=== PATIENT | female | born 1960 | race Caucasian/White ===

== ENCOUNTER 2021-02-17 10:23 | Outpatient (REF) | payer MEDICAID, SELFPAY ==
--- NOTE | ~2021-02-17 | XR_ITS ---
EXAMINATION: XR FOOT, RIGHT XR ANKLE, RIGHT CLINICAL INFORMATION: Pain in right foot and ankle. COMPARISON: 05/01/2012 TECHNIQUE: Three-view right foot and two-view right ankle. FINDINGS: Views of the right ankle do not demonstrate any evidence of acute fracture or dislocation. Ankle mortise is intact. No destructive bony lesions are identified. No significant soft tissue swelling is seen. Views of the right foot do not demonstrate any evidence of acute fracture or dislocation. Calcaneal spurs present sites of insertion of Achilles and plantar tendons. There is some mild soft tissue swelling seen overlying the dorsum of the tarsal bones. XR/XR ankle RT min 3V IMPRESSION: No significant bony abnormality of the right foot or ankle. Calcaneal spurs.
--- NOTE | ~2021-02-17 | XR_ITS ---
EXAMINATION: XR FOOT, RIGHT XR ANKLE, RIGHT CLINICAL INFORMATION: Pain in right foot and ankle. COMPARISON: 05/01/2012 TECHNIQUE: Three-view right foot and two-view right ankle. FINDINGS: Views of the right ankle do not demonstrate any evidence of acute fracture or dislocation. Ankle mortise is intact. No destructive bony lesions are identified. No significant soft tissue swelling is seen. Views of the right foot do not demonstrate any evidence of acute fracture or dislocation. Calcaneal spurs present sites of insertion of Achilles and plantar tendons. There is some mild soft tissue swelling seen overlying the dorsum of the tarsal bones. XR/XR foot RT min 3V IMPRESSION: No significant bony abnormality of the right foot or ankle. Calcaneal spurs.
== END 2021-02-17 10:24 | disposition home or self-care (01) ==
LOC: HO.XRAY 10:23
PROVIDERS: PCP Family Medicine; Visit Provider Family Medicine
DX: M25.571 Pain in right ankle and joints of right foot (principal); M79.674 Pain in right toe(s)
CPT/HCPCS: 73610; 73630

== ENCOUNTER → 2021-10-30 13:11 | Outpatient (REF) | payer MEDICAID, SELFPAY ==
--- NOTE | 2021-10-30 13:16 | ECG_ITS ---
Hook-up date: 2021-10-30 13:45:00 Duration: 24:11:00 Test Indications: Vent Premature Depolarization Medications: 62190 QRS complexes 10232 Ventricular ectopics which represent 14 % of total QRS comp. 86 Supraventricular ectopics which represent <1 % of total QRS comp. * Paced QRS complexs which represent % of total QRS comp. VENTRICULAR ECTOPY 07121 Isolated 1881 Bigeminal Cycles 11 Couplets 1 Runs 4 Beats in Runs 4 Beats LONGEST at 136 BPM at 18:56:51 2021-10-30 4 Beats FASTEST at 136 BPM at 18:56:51 2021-10-30 SUPRAVENTRICULAR ECTOPY 67 Isolated 4 Couplets 3 Runs 11 Beats in Runs 4 Beats LONGEST at 105 BPM at 15:25:02 2021-10-30 4 Beats FASTEST at 130 BPM at 03:33:30 2021-10-31 HEART RATES 53 MIN at 08:01:53 2021-10-31 72 AVG 114 MAX at 09:06:14 2021-10-31 LONGEST RR 1.0880 secs at 08:01:53 2021-10-31 S-T LEVELS Channel 1 - 128 mm at 13:45:00 2021-10-30 - 128 mm at 13:45:00 2021-10-30 Channel 2 - 128 mm at 13:45:00 2021-10-30 - 128 mm at 13:45:00 2021-10-30 Channel 3 - 128 mm at 03:30:41 -- - 128 mm at 03:30:41 Basic rhythm Normal sinus rhythm No long pause or profound bradycardia Frequent Premature ventricular complexes noted, 14% of total beats No diary submitted Referred By: Patricia Asher Overread By: INGRID REYES MD
== END ==
LOC: HO.CARD 13:11
PROVIDERS: PCP Family Medicine; Visit Provider Family Medicine
DX: I49.3 Ventricular premature depolarization (principal)
CPT/HCPCS: 93225; 93226

== ENCOUNTER 2021-11-17 11:50 | Outpatient (REF) | payer MEDICAID, SELFPAY ==
--- NOTE | ~2021-11-17 | MM_ITS ---
EXAMINATION: MM SCREENING DIGITAL BREAST TOMOSYNTHESIS, BILATERAL CLINICAL INFORMATION: Screening. Asymptomatic. The lifetime risk of breast cancer based on the Tyrer-Cuzick Model is 3%. COMPARISON: Mammography: 03/18/2018, 03/11/2017, 01/30/2016, 01/20/2015 TECHNIQUE: Digital breast tomosynthesis is performed in both the craniocaudal and mediolateral oblique views along with computer-aided detection (CAD). Synthesized 2D images are generated from the tomosynthesis. FINDINGS: The breasts are almost entirely fatty (ACR BI-RADS breast composition Category a). Background stromal and fibroglandular densities are stable. There are scattered benign round, rim, predominantly dermal calcifications. There is no interval mass or architectural abnormality or abnormal calcifications. Axillary node similar to prior exams with benign abundant fatty hilus. Skin contours are smooth. No significant changes. MM/MM tomosynthesis screening BI IMPRESSION: No mammographic evidence of malignancy. ASSESSMENT: BI-RADS 2: Benign RECOMMENDATION: Routine annual mammography screening. This patient's information was entered into a reminder system with a target due date for their next mammogram.
== END 2021-11-17 11:51 | disposition home or self-care (01) ==
LOC: HO.MAMMO 11:50
PROVIDERS: PCP Family Medicine; Visit Provider Family Medicine
DX: Z12.31 Encounter for screening mammogram for malignant neoplasm of breast (principal)
CPT/HCPCS: 77063; 77067

== ENCOUNTER 2022-03-09 07:16 | Outpatient (REF) | payer MEDICAID, SELFPAY ==
--- NOTE | ~2022-03-09 | XR_ITS ---
EXAMINATION: XR ELBOW, LEFT CLINICAL INFORMATION: Pain. COMPARISON: 03/11/2017. TECHNIQUE: AP, lateral, and oblique views of the left elbow. FINDINGS: There is no evidence of acute fracture or dislocation of the left elbow. No left elbow effusion is identified. Calcific density is seen about the lateral epicondyle, consistent with calcific epicondylitis. This has progressed since previous study of 03/11/2017. XR/XR elbow LT min 3V IMPRESSION: Lateral calcific epicondylitis. No acute fracture, dislocation, or effusion.
== END 2022-03-09 07:17 | disposition home or self-care (01) ==
LOC: HO.HOSX 07:16
PROVIDERS: Visit Provider Physician Assistant
DX: G56.22 Lesion of ulnar nerve, left upper limb (principal); G56.02 Carpal tunnel syndrome, left upper limb; M25.522 Pain in left elbow
CPT/HCPCS: 73080; 99212

== ENCOUNTER 2022-06-28 12:02 | Outpatient (REF) | payer MEDICAID, SELFPAY ==
--- NOTE | 2022-06-28 09:15 | EMG_ITS ---
Left median and ulnar motor and sensory studies were performed. Left radial sensory study was performed and paraspinal muscles were tested with a needle. IMPRESSION: Mild to moderate left median neuropathy across carpal tunnel. MD JET Bush/BARBARA / [phone]
== END 2022-06-28 12:03 | disposition home or self-care (01) ==
LOC: HO.NEURO 12:02
PROVIDERS: PCP Family Medicine; Visit Provider Physician Assistant
DX: G56.02 Carpal tunnel syndrome, left upper limb (principal); G56.22 Lesion of ulnar nerve, left upper limb
CPT/HCPCS: 95886; 95909

== ENCOUNTER → 2022-07-25 08:16 | Outpatient (BNVA) | payer MEDICAID, SELFPAY | PROVIDERS: PCP Family Medicine; Visit Provider Orthopaedic Surgery | DX: G56.02 Carpal tunnel syndrome, left upper limb (principal); M77.12 Lateral epicondylitis, left elbow | CPT/HCPCS: 20551; 99202; J1100 ==

== ENCOUNTER 2022-11-19 12:13 | Outpatient (REF) | payer MEDICAID, SELFPAY ==
--- NOTE | ~2022-11-19 | MM_ITS ---
EXAMINATION: MM SCREENING DIGITAL BREAST TOMOSYNTHESIS, BILATERAL CLINICAL INFORMATION: Screening. Asymptomatic. The lifetime risk of breast cancer based on the Tyrer-Cuzick Model is 6%. COMPARISON: Mammography: 11/17/2021, 03/18/2018, 03/11/2017 TECHNIQUE: Digital breast tomosynthesis is performed in both the craniocaudal and mediolateral oblique views along with computer-aided detection (CAD). Synthesized 2D images are generated from the tomosynthesis. FINDINGS: The breasts are almost entirely fatty (ACR BI-RADS breast composition Category a). There are no significant masses, abnormal calcifications, or other abnormalities. Background stromal markings appearing normal. No developing density or architectural abnormality. There are scattered predominantly dermal round calcifications again seen. The axilla are unremarkable. There are no significant changes. MM/MM tomosynthesis screening BI IMPRESSION: No mammographic evidence of malignancy. ASSESSMENT: BI-RADS 2: Benign RECOMMENDATION: Routine annual mammography screening. This patient's information was entered into a reminder system with a target due date for their next mammogram.
== END 2022-11-19 12:14 | disposition home or self-care (01) ==
LOC: HO.MAMMO 12:13
PROVIDERS: PCP Family Medicine; Visit Provider Family Medicine
DX: Z12.31 Encounter for screening mammogram for malignant neoplasm of breast (principal)
CPT/HCPCS: 77063; 77067

== ENCOUNTER 2023-08-21 08:02 | Outpatient (REF) | payer MEDICAID, SELFPAY ==
[2023-08-21 12:09] LABS: Alanine Aminotransferase 17 U/L (0-31); Alkaline Phosphatase 65 U/L (39-117); Anion Gap 11 (12-20); Aspartate Amino Transferase 18 U/L (5-31); Bilirubin Total 0.5 mg/dL (0.0-1.0); Blood Urea Nitrogen 14 mg/dL (9-16); Calcium 9.5 mg/dL (8.4-10.2); Carbon Dioxide 28 mmol/L (22-29); Chloride 107 mmol/L (96-108); Cholesterol 111 mg/dL (<200); Estimated Glomerular Filt Rate > 60; Glucose Random 123 mg/dL (60-115); HDL Cholesterol 47 mg/dL (>40); LDL Cholesterol Calculated 50 mg/dL (<100); Potassium 4.4 mmol/L (3.3-5.1); Sodium 142 mmol/L (135-145); Total Protein 7.2 g/dL (6.5-8.0); Triglycerides 73 mg/dL (<150)
[2023-08-21 12:27] LABS: Creatinine Urine 134.42 mg/dL; Microalbum/Creatinine Ratio Ur 15.6 ug/mg cr (<30)
[2023-08-21 14:20] LABS: Vitamin B12 448 pg/mL (200-900)
== END 2023-08-21 08:03 | disposition home or self-care (01) ==
LOC: HO.HHCL 08:02
PROVIDERS: Visit Provider Family Medicine
DX: E11.9 Type 2 diabetes mellitus without complications (principal)
CPT/HCPCS: 36415; 80053; 80061; 82043; 82570; 82607

== ENCOUNTER 2023-11-21 11:37 | Outpatient (REF) | payer MEDICAID, SELFPAY | END 2023-11-21 11:38 | disposition home or self-care (01) | LOC: HO.MAMMO 11:37 | PROVIDERS: PCP Family Medicine; Visit Provider Family Medicine | DX: Z12.31 Encounter for screening mammogram for malignant neoplasm of breast (principal) | CPT/HCPCS: 77063; 77067 ==

== ENCOUNTER → 2023-11-21 12:45 | Outpatient (BNV) | payer MEDICAID, SELFPAY | PROVIDERS: PCP Family Medicine; Visit Provider Radiology Diagnostic Radiology | DX: Z12.31 Encounter for screening mammogram for malignant neoplasm of breast (principal) | CPT/HCPCS: 77063; 77067 ==

== ENCOUNTER 2024-07-01 | Outpatient (REF) | payer MEDICAID, SELFPAY ==
[2024-07-02 10:40] LABS: HPV 16,18/45 See PAP report
== END 2024-07-01 00:01 | disposition home or self-care (01) ==
LOC: HO.LNP
PROVIDERS: Visit Provider Family Medicine
DX: Z01.419 Encounter for gynecological examination (general) (routine) without abnormal findings (principal); Z11.51 Encounter for screening for human papillomavirus (HPV)
CPT/HCPCS: 87624; 88175

== ENCOUNTER 2024-09-30 09:28 | Outpatient (REF) | payer MEDICAID, SELFPAY ==
--- NOTE | ~2024-09-30 | XR_ITS ---
EXAMINATION: XR TOES, RIGHT CLINICAL INFORMATION: right 2nd toe pain COMPARISON: None available. TECHNIQUE: 3 views of the right toes were obtained. FINDINGS: No osteolysis. No subcutaneous emphysema. No acute cortical disruption or malalignment. XR/XR toe RT min 2V IMPRESSION: No osteomyelitis based upon x-ray. Electronically signed by: Bam Wood MD 09/30/2024 10:34 AM RIGO
--- OUTSIDE RECORDS SUMMARY | 2024-09-30 09:56 | XMS_ITS | Clinical Summary ---
Author Organization [employer] Address [address] [place] [address] Care Team Providers Care Road Manager Name Role Phone Patricia Asher MD Primary Care Provider [phone] Zachary Garcia PharmD Unavailable [phone] Allergies No known active allergies Medications * This document contains information received from the source organization and may not represent a complete record from that organization. Blood Glucose Monitoring Suppl (FreeStyle glucose monitoring) kit Use to test blood sugar twice daily Active metoprolol succinate XL (Toprol-XL) 25 MG 24 hr tablet Take 1 tablet by mouth daily Active Diclofenac Sodium 1 % gel Apply to affected areas once or twice daily as needed for pain 150 g 2 3 Active lidocaine (Lidoderm) 5 % patch Apply to affected areas (bilateral knees) once daily. Remove after 12 hours. 60 patch 3 3 Active gabapentin (Neurontin) 300 MG capsule TAKE 1 CAPSULE BY MOUTH TWICE DAILY 3 Active Ventolin HFA 108 (90 Base) MCG/ACT inhalerIndications: Moderate persistent asthma without complication INHALE 2 PUFFS BY MOUTH EVERY 4 TO 6 HOURS NEEDED 18 g 3 Active TRUEplus Lancets 33G miscIndications:Typ e 2 diabetes mellitus without complication, without long-term current use of insulin ([facility]) Use to test blood sugar twice daily as directed 200 each 2 3 Active aspirin (Aspirin Adult Low Strength) 81 MG EC tabletIndications:T ype 2 diabetes mellitus without complication, without long-term current use of insulin ([facility]) TAKE 1 TABLET BY MOUTH ONCE DAILY 90 tablet 3 4 Active fluticasone furoate (Arnuity Ellipta) 100 MCG/ACT inhaler Inhale 1 PUFF EVERY DAY RINSE MOUTH AFTER USING. 30 each 11 4 Active glucose blood (FREESTYLE LITE) test stripIndications:Ty pe 2 diabetes mellitus without complication, without long-term current use of insulin ([facility]) Use to test blood sugar twice daily as directed 150 each 3 4 Active meloxicam (Mobic) 7.5 MG tabletIndications:P rimary osteoarthritis of both knees TAKE 1 TABLET BY MOUTH ONE OR TWO TIMES DAILY NEEDED 60 tablet 5 4 Active montelukast (Singulair) 10 MG tablet TAKE 1 TABLET BY MOUTH EVERY EVENING 90 tablet 3 4 Active cholecalciferol (Vitamin D-3) 25 MCG tablet TAKE 1 TABLET BY MOUTH EVERY DAY 90 tablet 3 4 Active Dulaglutide (Trulicity) 3 MG/0.5ML solution auto-injector Inject 0.5 mL (3 mg) under the skin 1 (one) time per week. 2 mL 11 4 Active enalapril (Vasotec) 20 MG tabletIndications:E ssential hypertension TAKE 1 TABLET BY MOUTH TWICE DAILY 180 tablet 3 4 Active atorvastatin (Lipitor) 40 MG tablet TAKE 1 TABLET BY MOUTH AT BEDTIME 90 tablet 3 4 Active metFORMIN (Glucophage) 1000 MG tablet TAKE 1 TABLET BY MOUTH TWICE DAILY IN THE MORNING AND IN THE EVENING WITH MEALS 180 tablet 3 4 Active Active Problems Problem Noted Date Diagnosed Date Depression 11/17/2023 Assessment & Plan (12/23/2023 9:31 AM EDT): PROGRESS NOTE: ID: Miryam is a 63 y.o. straight-identified cis-female (pronouns she/her/hers) with previous documented hx of Depression MH services including OP Psychotherapy who presents for Depression. During IBH Consult Miryam presenting with concern about ambulation, reported feeling stuck, PHQ-9 was conducted patient scored 0 and denies trauma, SI/HI/AVH and self harm. MONICA-7 was also conducted, patients scored 2 fearfulness and trouble relaxing, not meeting criteria for dx. Miryam reported she lives with her daughter and and they talk, verbalized at this time she is not interested in MH services at this time. I encouraged Miryam to inform PCP is she changes her mind, she agreed. ; for a period of 0-6 mo, for all symptoms in the context of unable to identify significant stressors. PLAN: Further services offered, but declined by patient. Assessment & Plan (11/17/2023 1:23 PM EDT): - PHQ9 score 11 - will refer to [facility] behavioral health service Premature ventricular beats 09/09/2022 Assessment & Plan (08/15/2023 10:00 AM EST): - Holter monitor on 10/30/21 showed 14% of premature ventricular complex - Continue metoprolol succinate 12.5 mg daily due to HTN Assessment & Plan (03/03/2023 5:06 PM EDT): - Holter monitor on 10/30/21 showed 14% of premature ventricular complex - Continue metoprolol succinate 12.5 mg daily due to HTN Assessment & Plan (12/10/2022 11:47 AM EDT): - Holter monitor on 10/30/21 showed 14% of premature ventricular complex - Continue metoprolol succinate 12.5 mg daily due to HTN Assessment & Plan (09/09/2022 11:31 AM EST): - Holter monitor on 10/30/21 showed 14% of premature ventricular complex - Will consult with cardilogist - Start metoprolol succinate 12.5 mg daily due to HTN History of stroke 09/06/2022 Assessment & Plan (08/15/2023 10:06 AM EST): - Work on secondary prevention - lifestyle modifications - high-intensity statin and ASA - control BP Assessment & Plan (03/03/2023 5:09 PM EDT): - Work on secondary prevention - lifestyle modifications - high-intensity statin and ASA - control BP Assessment & Plan (12/10/2022 11:50 AM EDT): - Work on secondary prevention - lifestyle modifications - high-intensity statin and ASA - control BP Assessment & Plan (09/09/2022 11:23 AM EST): - Work on secondary prevention - lifestyle modifications - high-intensity statin and ASA - control BP Bilateral carpal tunnel syndrome 09/06/2022 Assessment & Plan (08/15/2023 9:57 AM EST): - orthopedist: [facility] [place] - continue conservative management and schedule carpal tunnel release surgery when she is ready - activity modification - use wrist brace for night time Assessment & Plan (03/03/2023 5:06 PM EDT): - orthopedist: [facility] [place] - continue conservative management and schedule carpal tunnel release surgery when she is ready - activity modification - use wrist brace for night time Assessment & Plan (12/10/2022 11:45 AM EDT): - orthopedist: [facility] [place] - continue conservative management and schedule carpal tunnel release surgery when she is ready - activity modification - use wrist brace for night time Assessment & Plan (09/09/2022 11:05 AM EST): - orthopedist: [facility] [place] - continue conservative management and schedule carpal tunnel release surgery when she is ready - activity modification - will prescribe wrist brace for night time Asthma 09/04/2022 Assessment & Plan (08/15/2023 9:58 AM EST): - Change Flovent to Asmanex - Continue montelukast as maintenance - Continue albuterol HFA prn Assessment & Plan (12/10/2022 11:46 AM EDT): - Continue Flovent 110 mcg bid and montelukast as maintenance - Continue albuterol HFA prn Assessment & Plan (09/09/2022 11:10 AM EST): - Continue Flovent 110 mcg bid and montelukast as maintenance - Continue albuterol HFA prn 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 No inflammatory arthritis or autoimmune disorder. Vascular insufficiency 09/04/2022 Assessment & Plan (07/01/2024 9:33 AM EST): - Evaluated by Dr. Forrester on 06/15/19. Following with [facility] provider, last seen in Apr 2022 - CEAP Class III. - Currently managed by conservative management. - Continue compression stocking, low sodium intake, and leg elevation. - 08/20/19 Venous study right CFV, GSV, SFJ valve, SSV, and popliteal insufficiency; left CFV, SGV, SFJ valve, popliteal, and SSV insufficiency; L > R Assessment & Plan (08/15/2023 10:00 AM EST): - Evaluated by Dr. Forrester on 06/15/19. Following with [facility] provider, last seen in Apr 2022 - CEAP Class III. - Currently managed by conservative management. - Continue compression stocking, low sodium intake, and leg elevation. - 08/20/19 Venous study right CFV, GSV, SFJ valve, SSV, and popliteal insufficiency; left CFV, SGV, SFJ valve, popliteal, and SSV insufficiency; L > R Assessment & Plan (12/10/2022 11:46 AM EDT): - Evaluated by Dr. Forrester on 06/15/19. Following with [facility] provider, last seen in Apr 2022 - CEAP Class III. - Currently managed by conservative management. - Continue compression stocking, low sodium intake, and leg elevation. - 08/20/19 Venous study right CFV, GSV, SFJ valve, SSV, and popliteal insufficiency; left CFV, SGV, SFJ valve, popliteal, and SSV insufficiency; L > R Assessment & Plan (09/09/2022 11:17 AM EST): - Evaluated by Dr. Forrester on 06/15/19. [facility] last seen in Apr 2022 - CEAP Class III. - Currently managed by conservative management. - Continue compression stocking, low sodium intake, and leg elevation. - 08/20/19 Venous study right CFV, GSV, SFJ valve, SSV, and popliteal insufficiency; left CFV, SGV, SFJ valve, popliteal, and SSV insufficiency; L > R Dry eyes 02/19/2018 Presbyopia 02/19/2018 Osteoarthritis of knee 01/03/2017 Assessment & Plan (08/15/2023 10:02 AM EST): Seen by ortho on 01/06/2018 and Received steroid injection in R knee. Referred to supervisor paint and received injection. Seen and evalauted by machining and assembly supervisor. No inflammatory arthritis. Recommended to continue judicious use of gabapentin. Discussed about working on lifestyle modifications. Treatment Hx: meloxicam 7.5 mg once or twice daily, pt is no longer taking it Continue APAP prn Add Lidoderm patch and diclofenac gel Assessment & Plan (03/03/2023 5:08 PM EDT): Seen by ortho on 01/06/2018 and Received steroid injection in R knee. Referred to supervisor paint and received injection. Seen and evalauted by machining and assembly supervisor. No inflammatory arthritis. Recommended to continue judicious use of gabapentin. Discussed about working on lifestyle modifications. Treatment Hx: meloxicam 7.5 mg once or twice daily, pt is no longer taking it Continue APAP prn Add Lidoderm patch and diclofenac gel Assessment & Plan (09/09/2022 11:20 AM EST): Seen by ortho on 01/06/2018 and Received steroid injection in R knee. Referred to supervisor paint and received injection. Seen and evalauted by machining and assembly supervisor. No inflammatory arthritis. Recommended to continue judicious use of gabapentin. Discussed about working on lifestyle modifications. Rx meloxicam 7.5 mg once or twice daily for moderate to severe pain Varicose veins of lower extremity 08/13/2016 Assessment & Plan (07/01/2024 9:33 AM EST): - Evaluated by Dr. Forrester on 06/15/19. Following with [facility] provider, last seen in Apr 2022 - CEAP Class III. - Currently managed by conservative management. - Continue compression stocking, low sodium intake, and leg elevation. - 08/20/19 Venous study right CFV, GSV, SFJ valve, SSV, and popliteal insufficiency; left CFV, SGV, SFJ valve, popliteal, and SSV insufficiency; L > R Assessment & Plan (08/15/2023 10:00 AM EST): - Evaluated by Dr. Forrester on 06/15/19. [facility], last seen in Apr 2022 - CEAP Class III. - Currently managed by conservative management. - Continue compression stocking, low sodium intake, and leg elevation. - 08/20/19 Venous study right CFV, GSV, SFJ valve, SSV, and popliteal insufficiency; left CFV, SGV, SFJ valve, popliteal, and SSV insufficiency; L > R Assessment & Plan (03/03/2023 5:06 PM EDT): - Evaluated by Dr. Forrester on 06/15/19. Following with [facility] provider, last seen in Apr 2022 - CEAP Class III. - Currently managed by conservative management. - Continue compression stocking, low sodium intake, and leg elevation. - 08/20/19 Venous study right CFV, GSV, SFJ valve, SSV, and popliteal insufficiency; left CFV, SGV, SFJ valve, popliteal, and SSV insufficiency; L > R Assessment & Plan (12/10/2022 11:46 AM EDT): - Evaluated by Dr. Forrester on 06/15/19. [facility], last seen in Apr 2022 - CEAP Class III. - Currently managed by conservative management. - Continue compression stocking, low sodium intake, and leg elevation. - 08/20/19 Venous study right CFV, GSV, SFJ valve, SSV, and popliteal insufficiency; left CFV, SGV, SFJ valve, popliteal, and SSV insufficiency; L > R Assessment & Plan (09/09/2022 11:17 AM EST): - Evaluated by Dr. Forrester on 06/15/19. [facility], last seen in Apr 2022 - CEAP Class III. - Currently managed by conservative management. - Continue compression stocking, low sodium intake, and leg elevation. - 08/20/19 Venous study right CFV, GSV, SFJ valve, SSV, and popliteal insufficiency; left CFV, SGV, SFJ valve, popliteal, and SSV insufficiency; L > R Type 2 diabetes mellitus 01/10/2016 Assessment & Plan (07/01/2024 9:33 AM EST): - A1C 7.5% on 07/01/24 - Continue working on lifestyle modifications - Continue Prandin 1 mg with breakfast, 2 mg with lunch, and 1 mg with dinner - Continue Metfomrin 1000mg BID. - Increase dulaglutide (Trulicity) to 3.0 mg weekly - Treatment Hx: Jardiance 10 mg daily - discontinued due to symptom - Last eye exam: Jun 2023, no diabetic retinopathy - Last foot exam: 07/01/24 - Last microalbumin test: Jul 2023. No microalbuminuria. - Last lipid profile: Jul 2023 - Last dental exam: - Follow up in 3 mo Assessment & Plan (11/17/2023 1:27 PM EDT): - A1C 7.5%, slight improvement from long plateau period of 7.7% - 7.8% - Continue working on lifestyle modifications - Continue Prandin 1 mg with breakfast, 2 mg with lunch, and 1 mg with dinner - Continue Metfomrin 500mg 2 tablets BID. - Increase dulaglutide (Trulicity) to 1.5 mg weekly; due to its shortage, we can continue with 0.75 mg weekly. Once she starts 1.5 mg weekly, discontinue Prandin. - Treatment Hx: Jardiance 10 mg daily - discontinued due to symptom - Last eye exam: Jun 2023, no diabetic retinopathy - Last foot exam: October 2023. - Last microalbumin test: Jul 2023. No microalbuminuria. - Last lipid profile: Jul 2023 - Last dental exam: - Follow up in 3 mo Assessment & Plan (08/15/2023 10:06 AM EST): - A1C 7.7% on 08/13/23, plateau - Discussed about the importance of lifestyle modifications to achieve her goal A1C. - Continue Prandin 1 mg with breakfast, 2 mg with lunch, and 1 mg with dinner - Continue Metfomrin 500mg 2 tablets BID. - Treatment Hx: Jardiance 10 mg daily - discontinued due to symptom - Last eye exam: Jun 2023, no diabetic retinopathy - Last foot exam: 08/2022 - Last microalbumin test: Ordered, no history of microalbuminuria - Last FLP:Ordered - Last dental exam: - Follow up in 3 mo Assessment & Plan (03/03/2023 5:10 PM EDT): - A1C 7.7% on 02/28/23, 7.8% 09/06/22 - Discussed about the importance of lifestyle modifications to achieve her goal A1C. - Continue Prandin 1 mg with breakfast, 2 mg with lunch, and 1 mg with dinner - Continue Metfomrin 500mg 2 tablets BID. - Treatment Hx: Jardiance 10 mg daily - discontinued due to symptom - Last eye exam: February 2019, no diabetic retinopathy - Last foot exam: 08/2022 - Last microalbumin test: 02/15/21 UACR 10 - Last FLP: 02/15/21 TC 131; HDL 51; LDL 60; TG 111 - Last dental exam: - Follow up in 3 mo Assessment & Plan (12/10/2022 11:49 AM EDT): - A1C 7.8% 09/06/22, trending up - Discussed about the importance of lifestyle modifications to achieve her goal A1C. - Continue Prandin 1 mg with breakfast, 2 mg with lunch, and 1 mg with dinner - Continue Metfomrin 500mg 2 tablets BID. - Treatment Hx: Jardiance 10 mg daily - discontinued due to symptom - Last eye exam: February 2019, no diabetic retinopathy - Last foot exam: 08/2022 - Last microalbumin test: 02/15/21 UACR 10 - Last FLP: 02/15/21 TC 131; HDL 51; LDL 60; TG 111 - Last dental exam: Assessment & Plan (09/09/2022 11:26 AM EST): - A1C 7.8% 09/06/22, trending up - Discussed about the importance of lifestyle modifications to achieve her goal A1C. - Continue Prandin 1 BID - Continue Metfomrin 500mg 2 tablets BID. - Treatment Hx: Jardiance 10 mg daily - discontinued due to symptom - Last eye exam: February 2019, no diabetic retinopathy - Last foot exam: 08/2022 - Last microalbumin test: 02/15/21 UACR 10 - Last FLP: 02/15/21 TC 131; HDL 51; LDL 60; TG 111 - Last dental exam: Essential hypertension 07/19/2015 Assessment & Plan (07/06/2024 9:45 AM EST): - Goal BP < 140/90 er JNC-8 and < 130/80 per ACC/AHA guideline - Initial BP not at goal today; second BP reading in office was better. - Co-managed with butter wrapper and pharmacist - Treatment Hx: HCTZ was discontinued because she was diagnosed with gout / mild hyperuricemia and hypokalemia - Continue working on lifestyle modifications - Continue Enalapril 20 mg bid - Continue metoprolol succinate 12.5 mg daily for frequent PVC. - Follow up in 3 mo, sooner if any problem arises Assessment & Plan (11/17/2023 1:18 PM EDT): - Goal BP < 140/90 er JNC-8 and < 130/80 per ACC/AHA guideline - BP at goal today - Co-managed with butter wrapper and pharmacist - Treatment Hx: HCTZ was discontinued because she was diagnosed with gout / mild hyperuricemia and hypokalemia - Continue working on lifestyle modifications - Continue Enalapril 20 mg bid - Continue metoprolol succinate 12.5 mg daily for frequent PVC. - Follow up in 3 mo, sooner if any problem arises Assessment & Plan (08/15/2023 10:01 AM EST): - Goal BP < 140/90 er JNC-8 and < 130/80 per ACC/AHA guideline - BP not at goal today - Treatment Hx: HCTZ was discontinued because she was diagnosed with gout / mild hyperuricemia and hypokalemia - Continue working on lifestyle modifications - Continue Enalapril 20 mg bid - Continue metoprolol succinate 12.5 mg daily for frequent PVC. - Referred to [facility] - Follow up in 3 mo, sooner if any problem arises Assessment & Plan (03/03/2023 5:07 PM EDT): - Goal BP < p140/90 er JNC-8 and < 130/80 per ACC/AHA guideline - BP not at goal today - Treatment Hx: HCTZ was discontinued because she was diagnosed with gout / mild hyperuricemia and hypokalemia - Continue working on lifestyle modifications - Continue Enalapril 20 mg bid - Continue metoprolol succinate 12.5 mg daily for frequent PVC. - Referred to [facility] - Follow up in 3 mo, sooner if any problem arises Assessment & Plan (12/10/2022 11:48 AM EDT): - Goal BP < p140/90 er JNC-8 and < 130/80 per ACC/AHA guideline - BP not at goal today - Treatment Hx: HCTZ was discontinued because she was diagnosed with gout / mild hyperuricemia and hypokalemia - Continue working on lifestyle modifications - Continue Enalapril 20 mg bid - Continue metoprolol succinate 12.5 mg daily for frequent PVC. - Referred to [facility] - Follow up in 3 mo, sooner if any problem arises Assessment & Plan (09/09/2022 11:15 AM EST): - Goal BP < p140/90 er JNC-8 and < 130/80 per ACC/AHA guideline - BP not at goal today - Treatment Hx: HCTZ was discontinued because she was diagnosed with gout / mild hyperuricemia and hypokalemia - Continue working on lifestyle modifications - Continue current medications: Enalapril 20 mg bid - Add metoprolol succinate 12.5 mg daily for frequent PVC. - Refer to [facility] - Follow up in 3 mo, sooner if any problem arises Seasonal allergic rhinitis 07/19/2015 Assessment & Plan (09/09/2022 11:24 AM EST): - continue montelukast Hemiparesis affecting right side as late effect of stroke 2014 Assessment & Plan (08/15/2023 9:57 AM EST): - pt is using a cane - fall precaution Assessment & Plan (03/03/2023 5:06 PM EDT): - pt is using a cane - fall precaution Assessment & Plan (12/10/2022 11:45 AM EDT): - pt is using a cane - fall precaution Assessment & Plan (09/09/2022 11:05 AM EST): - pt is using a cane - fall precaution Dyslipidemia 06/03/2013 Assessment & Plan (11/17/2023 1:23 PM EDT): - Current medication: atorvastatin 40 mg qhs - Most recent lab: Jul 2023 - High-intensity statin therapy is indicated; consider increasing after next lab - Continue working on lifestyle modifications Assessment & Plan (08/15/2023 10:07 AM EST): - Current medication: atorvastatin 40 mg qhs - Most recent lab: 02/15/21 TC 131; HDL 51; LDL 60; TG 111 - High-intensity statin therapy is indicated; consider increasing after next lab - Continue working on lifestyle modifications - Check lab Assessment & Plan (09/09/2022 11:23 AM EST): - Current medication: atorvastatin 40 mg qhs - Most recent lab: 02/15/21 TC 131; HDL 51; LDL 60; TG 111 - High-intensity statin therapy is indicated; consider increasing after next lab - Continue working on lifestyle modifications - Check lab Gastroesophageal reflux disease 06/03/2013 Obesity 06/03/2013 Assessment & Plan (08/15/2023 10:06 AM EST): - continue working on lifestyle modificatioins Assessment & Plan (09/09/2022 11:24 AM EST): - continue working on lifestyle modificatioins Resolved Problems Problem Noted Date Diagnosed Date Resolved Date Inflammatory disorder of upp er respiratory tract 10/28/2018 09/06/2022 Encounters Date Type Department Care Team Description 08/23/2024 Refill [facility] [address] [place] [address] Patricia Asher MD Essential hypertension 08/05/2024 Travel 07/01/2024 9:00 AM EST Procedure Visit [facility] [address] [place] [address] Patricia Asher MD Encounter for well woman exam with routine gynecological exam (Primary Dx); Type 2 diabetes mellitus without complication, without long-term current use of insulin ([facility]); Essential hypertension; Varicose veins of both lower extremities, unspecified whether complicated; Vascular insufficiency; Encounter for immunization; Pain in right toe(s); Urinary incontinence, unspecified type; Screening for colon cancer 07/01/2024 Travel from Last 3 Months Immunizations Name Administration Dates Next Due Hep B, adult 01/10/2016,10/18/2015,04/14/2015 Influenza Injectable Quadriv alant Preservative Free IIV4 MDCK 06/24/2023,06/13/2020 Influenza injectable quadriv alent IIV4 with preservative 05/14/2019,06/12/2018,08/21/2017,05/23 Influenza injectable quadriv alent preservative free 07/23/2022,05/30/2021 Influenza, IIV3, injectable 05/27/2014, 1 Influenza, Split (incl. ray fied surface antigen) 06/03/2013,06/17/2012 Influenza, seasonal, injecta ble, preservative free 07/01/2024 Moderna Covid-19 Vaccine 12+ 01/16/2024( Deferred: Patient decision - Vaccine Fatigue) Moderna Covid-19 Vaccine 6+ Bivalent 09/06/2022 Pfizer Covid-19 Vaccine 12+ 09/12/2021, 1,02/15/2021 Pneumococcal Conjugate PCV 20 02/28/2023 Pneumococcal Polysaccharide PPSV23 10/07/2010 Pneumococcal, Unspecified 10/07/2010 RSV Bivalent 01/16/2024(Deferred: Patient decision - Vaccine Fatigue) TD (adult), 2 Lf tetanus tox oid, preservative free, adsorbed 09/06/2022 Tdap 10/12/2010 Zoster, Recombinant 07/07/2019,04/29/2019 Family History Medical History Relation Name Comments Cardiomyopathy Father Coronary artery disease Father Diabetes Father Hypertension Father Coronary artery disease Mother Stroke Mother Relation Name Status Comments Father Mother Social History Tobacco Use Types Packs/Day Years Used Date Smoking Tobacco: Never Passive Smoke Exposure: Never Smokeless Tobacco: Never Tobacco Cessation:Counseling Given: Not Answered Alcohol Answer Date Recorded Frequency of Alcohol Consumption Not on file 07/01/2024 Average Number of Drinks Not on file 024 Frequency of Binge Drinking Not on file 01/2024 Score 0 07/01/2024 Depression Answer Date Recorded Patient Health Questionnaire-9 Score 0 12/23/2023 Patient Health Questionnaire-9 Score 0 12/23/2023 Last PHQ-9: Questionnaire Data Not on file 0 12/23/2023 Housing Stability Answer Date Recorded What is your housing situation today? I have sherman guerrier 11/05/[address] you li ve. Do you have problems with any of the following? None of the above 11/05/2023 Food Insecurity Answer Date Recorded Within the past 12 months, y ou worried that your food would run out before you got money to buy more: Never True 11/05/2023 Within the past 12 months,th e food you bought just didn't last and you didn't have enough money to get more: Never True 07/2024 Transportation Answer Date Recorded In the past 12 months, has l ack of transportation kept you from medical appts, meetings, work or from getting things needed for daily living? No 11/05/2023 Utilities Answer Date Recorded In the past 12 months, has t he electric, gas, oil or water company threatened to shut off services in your home? No 11/05/2023 Depression Answer Date Recorded Patient Health Questionnaire-2 Score 0 12/23/2023 Comments Unknown Sex and Gender Information Value Date Recorded Sex Assigned at Female 06/25/2022 10:21 AM EDT Legal Sex Female 10:21 AM EDT Gender Identity Female 06/25/2022 10:21 AM EDT Sexual Orientation Straight 06/25/2022 10 :21 AM EDT Last Filed Vital Signs Vital Sign Reading Time Taken Comments Blood Pressure 134/74 08/05/2024 10:19 AM EST Pulse 66 08/05/2024 10:19 AM EST Temperature 35.6 ??C (96 ??F) 07/01/2024 8:55 AM EST Respiratory Rate 20 07/01/2024 8:55 AM EST Oxygen Saturation 98% 12/04/2023 9:45 AM EDT Inhaled Oxygen Concentration - - Weight 83.3 kg (183 lb 9.6 oz) 07/01/2024 8:55 A M EST Height 152.4 cm (5') 07/01/2024 8:55 AM EST Body Mass Index 35.86 07/01/2024 8:55 AM EST Plan of Treatment Upcoming Encounters Date Type Department Care Team (Late st Contact Info) Description 10/05/2024 10:15 AM EST Office Visit [facility] MEDICINE [address] [place] [address] Patricia Asher MD [address] [place] [address] 10/28/2024 10:30 AM EST Medication Management [facility] [address] [place] [address] Zachary Garcia, PharmD [address] [place] [address] 12/11/2024 9:30 AM EDT Office Visit [facility] OPTOMETRY [address] [place] [address] Yuliana Cedeño, JOSE [address] [place] [address] Health Maintenance Due Date Last Done Comments CT Colonography 1960 FIT 1960 FOBT 1960 HIV Screening 1960 Sigmoidoscopy 1960 Hepatitis C Screening 1980 RSV Patients and Patients Aged 60 years or older (1 - Risk 60-74 years 1-dose series) 2022 HPV/Cotest 11/21/2023 11/20/2018 COVID-19 Vaccine ( season) 2024 09/06/2022, 09/12/2021, 03/08/2021, Additional history exists Diabetes: Urine Protein Screening 08/21/2024 08/21/2023, 02/15/2021, 01/28/2020 Lipid Panel 08/21/2024 08/21/2023, 02/15/2021 Diabetes: Hemoglobin A1C 10/01/2024 024, 03/18/2024, 11/13/2023, Additional history exists SDOH Screening 11/04/2024 11/05/2023 Depression Screening 12/22/2024 12/23/2023, 12/23/19 24 Colonoscopy 02/17/2025 02/17/2015 Alcohol/Substance Use Screening 07/01/2025 07/01/2024 Diabetes: Foot Exam 07/01/2025 07/01/2024, 07/01/2024, 07/01/2024, Additional history exists Tobacco Screening 07/01/2025 07/01/2024 Eye Exam 07/15/2025 07/15/2023, 06/27, 07/15/2023, Additional history exists Mammogram 11/20/2025 11/21/2023, 10/25, 11/17/2021, Additional history exists Cervical Cancer Screening 07/01/2027 Pap Smear 07/01/2027 07/01/2024 Colorectal Cancer Screening 09/18/2027 FIT DNA/Cologuard 09/18/2027 09/18/2024 DTaP/Tdap/Td Vaccines (3 - Td or Tdap) 09/06/2032 09/06/2022, 10/12/2010 Hepatitis B Vaccines Completed 01/10/2016, 10/18/2015, 04/14/2015 Zoster Vaccines Completed 07/07/2019, 04/29/2019 Pneumococcal Vaccine: 50+ Years Completed 02/28/2023, 10/07/2010, 10/07/2010 Influenza Vaccine Completed 07/01/2024, , 07/23/2022, Additional history exists HIB Vaccines Aged Out No longer eligi ble based on patient's age to complete this topic HPV Vaccines Aged Out No longer eligi ble based on patient's age to complete this topic Hepatitis A Vaccines Aged Out No long er eligible based on patient's age to complete this topic IPV Vaccines Aged Out No longer eligi ble based on patient's age to complete this topic Meningococcal Vaccine Aged Out No tod jourdan eligible based on patient's age to complete this topic RSV under 20 months Aged Out No longe r eligible based on patient's age to complete this topic Rotavirus Vaccines Aged Out No longer eligible based on patient's age to complete this topic Goals Goal Patient Goal Type Associated Problems Recent Progress Patient-Stated? Author Blood Pressure < 140/90 Blood Pressure 134/74(2023 10:19 AM EST) No Zachary Garcia PharmD Hemoglobin A1c < 7 Result Component 7.5( 8:59 AM EST) No Zachary Garcia PharmD Procedures Procedure Name Priority Date/Time Associated Diagnosis Comments LAB COLOGUARD?? COLON CANCER SCREEN Routine 09/18/2024 8:47 AM EST Screening for colon cancer LAB COLOGUARD?? COLON CANCER SCREEN- Unsuccessful Attempt Routine 09/01/2024 9:30 AM EST Screening for colon cancer POCT GLYCATED HEMOGLOBIN, TOTAL Routine 07/01/2024 8:59 AM EST Type 2 diabetes mellitus without complication, without long-term current use of insulin (CMS/HCC) POCT GLUCOSE Routine 07/01/2024 8:56 AM EST Type 2 diabetes mellitus without complication, without long-term current use of insulin (CMS/HCC) PAP SMEAR Routine 07/01/2024 12:00 AM EST Encounter for well woman exam with routine gynecological exam BI MAMMOGRAM SCREENING TOMOSYNTHESIS BILATERAL Routine 11/21/2023 12:05 PM EDT LIPID PANEL, STANDARD Routine 08/21/2023 8:03 AM EST ALBUMIN, RANDOM URINE W/CREATININE Routine 08/21/2023 7:13 AM EST ZZZ HISTORICAL HPV MRNA E6/E7 Routine 11/20/2018 10:50 AM EDT HM COLONOSCOPY Routine 02/17/2015 from Last 3 Months or Most Recently Relevant to Health Maintenance Results * (ABNORMAL) Cologuard?? colon cancer screening (09/18/2024 8:47 AM EST) Only the most recent of2 resultswithin the time period is included. Cologuard Result Positive( A) Negative 09/24/2024 9:46 AM EST [email or web address] (CLIA #:[id number]) Comment: POSITIVE TEST RESULT. A positive Cologuard result should be followed with a colonoscopy or visual examination of the colon. The normal value (reference range) for this assay is negative. TEST DESCRIPTION: Composite algorithmic analysis of stool DNA-biomarkers with hemoglobin immunoassay. ?? Quantitative values of individual biomarkers are not reportable and are not associated with individual biomarker result reference ranges. Cologuard is intended for colorectal cancer screening of adults of either sex, 45 years or older, who are at average-risk for colorectal cancer (CRC). Cologuard has been approved for use by the U.S. FDA. The performance of Cologuard was established in a cross sectional study of average-risk adults aged 50-84. Cologuard performance in patients ages 45 to 49 years was estimated by sub-group analysis of near-age groups. Colonoscopies performed for a positive result may find as the most clinically significant lesion: colorectal cancer [4.0%], advanced adenoma (including sessile serrated polyps greater than or equal to 1cm diameter) [20%] or non- advanced adenoma [31%]; or no colorectal neoplasia [45%]. These estimates are derived from a prospective cross-sectional screening study of 10,000 individuals at average risk for colorectal cancer who were screened with both Cologuard and colonoscopy. (Michelle Peralta al, N Engl J Med 2014;370(14):6799-5126.) Cologuard may produce a false negative or false positive result (no colorectal cancer or precancerous polyp present at colonoscopy follow up). A negative Cologuard test result does not guarantee the absence of CRC or advanced adenoma (pre-cancer). The current Cologuard screening interval is every 3 years. ([place] [employer] Society and U.S. Multi-Society Task Force). Cologuard performance data in a 10,000 patient pivotal study using colonoscopy as the reference method can be accessed at the following location: www.Mangatar.nvite/results. Additional description of the Cologuard test process, warnings and precautions can be found at www.cologuard.com. Stool specimen (specimen) Rectal contents / Unknown 09/18/2024 8:47 AM EST 09/19/2024 7:23 AM EST us Patricia Asher MD LAB MOLECULAR DIAGNOSTICS ORDERA BLES Final Result [email or web address] (CLIA #:[id number]) [address] [place] [address], * (ABNORMAL) POCT HGB A1C (07/01/2024 8:59 AM EST) Hemoglobin A1C 7.5(A) 4.0 - 6.0 % QC Media Lot # [id number] Lot# Expiration Date Blood 07/01/2024 8:59 AM EST us Patricia Asher MD POINT OF CARE TEST ENTER/EDIT OR DERABLES Final Result * (ABNORMAL) POCT Glucose (07/01/2024 8:56 AM EST) Glucose Blood, POC 201(A) 60 - 200 mg/dL QC Media Lot # [id number] Lot# Expiration Date [id number] Blood Capillary blood specimen / Unknown 07/01/2024 8:56 AM EST us Patricia Asher MD POINT OF CARE TEST ENTER/EDIT OR DERABLES Final Result * Pap Smear (07/01/2024 12:00 AM EST) Swab Cervix uteri structure / Unknown 07/01/2024 07/02/2024 8:45 AM EST Narrative [facility] - 07/06/2024 8:28 AM EST ----- ------- Name: Miryam Moura I ? Age/Sex: 64/F ? : 1960 Unit#: [id number] ?? Attend Dr: ?Re07/01/24 ?Status: PRE REF ? Location: HO.LNP ?Disch: ? ----- ------- SPEC : [id number] ?RECD: 07/02/24-844 ? STATUS: ??SOUT ? REQ NUM: [id number] ? JATIN: 07/01/24-0000 ? SUBM DR: Patricia Asher MD ? ENTERED: ??07/02/24-917 ?SP TYPE: Pap Smr ?OTHR : ? ORDERED: ??Pap Smear ? Interpretation ?? Satisfactory for evaluation. ?? Negative for intraepithelial lesion or malignancy. ? HPV High Risk: ??Negative ? HPV Genotyping 16: ??Negative ?? HPV Genotyping 18: ??Negative ?Clinical Information LMP: Postmenopausal Previous PAP test: 2019, Abnormal ? Material Received ?? ThinPrep-Cervical ----- ------- Signed (signature on file) GREGORIO Crisostomo (ASCP) 07/06/24827 ? ----- ------- ? END OF REPORT ? us Patricia Asher MD LAB CYTOLOGY ORDERABLES Final Re sult [facility] [address] [facility] [place] [address] [phone] * BI Mammogram Screening Tomosynthesis Bilateral (11/21/2023 12:05 PM EDT) Anatomical Region Laterality Modality Breast Bilateral Mammography 11/21/2023 12:0 5 PM EDT Narrative 12/07/2023 10:20 PM EDT ? [facility] ? [address] ?[place] [address] ? Mammography Report ? Signed ? Patient: Damien Miller,Miryam I ?MR#: [id number] ?? [id number] ? : 1960 ?Acct:[id number] ? Age/Sex: 63 / F ?ADM Date: 03/28/24 ? Loc: HO.MAMMO ? Attending Dr: Patricia Asher MD ? Ordering Physician: Patricia Asher MD ?Results: 1Negative ? Date of Service: /28/24 ?Follow Up: 1 Year From Orig ?? inal Mammogram ? Procedure(s): MM tomosynthesis screening BI ?? Accession Number(s): [id number] ? cc: Patricia Asher MD ? EXAMINATION: ?? MM SCREENING DIGITAL BREAST TOMOSYNTHESIS, BILATERAL ? CLINICAL INFORMATION: ? Screening. Asymptomatic. ? COMPARISON: ?? Mammography: This study is compared with prior exams dating back to ?? 2017. ? TECHNIQUE: ?? Digital breast tomosynthesis is performed in both the craniocaudal and ?? mediolateral oblique views along with computer-aided detection (CAD). ?? Synthesized 2D images are generated from the tomosynthesis. ? FINDINGS: ?? The breasts are almost entirely fatty (ACR BI-RADS breast composition ?? Category a). ? There are no significant masses, abnormal calcifications, or other ?? abnormalities. ? MM/MM tomosynthesis screening BI ?? IMPRESSION: ?? No mammographic evidence of malignancy. ? ASSESSMENT: ? BI-RADS BI-RADS 1 - Negative ? RECOMMENDATION: ?? Routine annual mammography screening. ? 1 year F/U ? This examination should not preclude the clinical evaluation of a ?? suspicious palpable abnormality. ? This patient's information was entered into a reminder system with a ?? target due date for their next mammogram. ? Dictated By: ?Tori Oh MD ? Signed By: ?<Electronically signed by Tori Oh MD in OV> ? 12/07/23 2217 ? DD/ 1205 ? TD/TT: ? Stamp Analyst: ? Procedure Note Guerda, Sriram - 12/07/2023 [facility] [address] [place] [address] [place] [address] Mammography Report Signed Patient: Miryam Moura IMR#: [id number] : 2Acct:[id number] Age/Sex: 63 / FADM Date: 11/21/23 Loc: HO.MAMMO Attending Dr: Patricia Asher MD Ordering Physician: Patricia Asher MDResults: 1Negative Date of Service: 11/21/23Follow Up: 1 Year From Orig ina Mammogram Procedure(s): MM tomosynthesis screening BI Accession Number(s): [id number] cc: Patricia Asher MD EXAMINATION: MM SCREENING DIGITAL BREAST TOMOSYNTHESIS, BILATERAL CLINICAL INFORMATION: Screening. Asymptomatic. COMPARISON: Mammography: This study is compared with prior exams dating back to 2018. TECHNIQUE: Digital breast tomosynthesis is performed in both the craniocaudal and mediolateral oblique views along with computer-aided detection (CAD). Synthesized 2D images are generated from the tomosynthesis. FINDINGS: The breasts are almost entirely fatty (ACR BI-RADS breast composition Category a). There are no significant masses, abnormal calcifications, or other abnormalities. MM/MM tomosynthesis screening BI IMPRESSION: No mammographic evidence of malignancy. ASSESSMENT: BI-RADS BI-RADS 1 - Negative RECOMMENDATION: Routine annual mammography screening. 1 year F/U This examination should not preclude the clinical evaluation of a suspicious palpable abnormality. This patient's information was entered into a reminder system with a target due date for their next mammogram. Dictated By: Tori Oh MD Signed By: <Electronically signed by Tori Oh MD in OV> 12/07/23 2437 DD/ 1205 TD/TT: Stamp Analyst: Patricia Asher MD IMG BI PROCEDURES Final Result * Lipid Panel, Standard (08/21/2023 8:03 AM EST) Triglycerides 73 <150 mg/dL [facility] Comment:Desirable Triglyceri de: less than 150 mg/dLBorderline High Triglyceride 150-199 mg/dLHigh Triglyceride: 200-499 mg/dLVery High Triglyceride: greater than or equal to 5OO mg/dL Cholesterol 111 <200 mg/dL [facility] Comment:Desirable Cholestero l: less than 200 mg/dLBorderline High Cholesterol: 200-239 mg/dLHigh Cholesterol: greater than 239 mg/dL LDL Cholesterol Calculated 50 <100 mg/dL [facility] Comment:Desirable LDL: less than 100 mg/dLNear Optimal/Above Optimal LDL: 110- 129 mg/dLBorderline High LDL: 130-159 mg/dLHigh LDL: 160-189 mg/dLVery High LDL: greater than or equal to 190 mg/dL HDL Cholesterol 47 >40 mg/dL [facility] Comment:Desirable HDL: great er than 40 mg/dL Note: This HDL assay may give artificially low results in patients with liver disease. 08/21/2023 8:03 AM EST 08/21/2023 11:31 AM EST Patricia Asher MD LAB BLOOD ORDERABLES Final Resul t Performing Organization Address [facility] Co de Phone Number [facility] [address] [place] [phone] * Albumin, Random Urine W/Creatinine (08/21/2023 7:13 AM EST) Creatinine, Urine 134.42 mg/dL [facility] Microalbumin Urine 21.0 mg/L [facility] Microalbum Creatinine Ratio Ur 15.6 <30 ug/mg cr [facility] Comment:Albumin/Creatinine R atio Reference Ranges: Normal: < 30 ug/mg creatinine Microalbuminuria: 30 - 300 ug/mg creatinineClinical Albuminuria: > 300 ug/mg creatinine 08/21/2023 7:13 AM EST 08/21/2023 11:21 AM EST Patricia Asher MD LAB URINE ORDERABLES Final Resul t Performing Organization Address [facility]/ZIP Co de Phone Number [facility] [address] [place] [phone] * HPV mRNA E6/E7 (11/20/2018 10:50 AM EDT) HPV mRNA E6/E7 Not Detected NOT DETECTED [facility] Comment: This test was performed using the APTIMA(R) HPV Assay ([employer] This assay detects E6/E7 viral messenger RNA (mRNA) from 14 high-risk HPV types (16,18,31,33,35,39,45,51, 52,56,58,59,66,68). For additional information please refer to: http://education.Gruvi/faq/KWG408u7 (This link is being provided for informational/ educational purposes only.) The analytical performance characteristics of this assay have been determined by [employer] [place], [place]. The modifications have not been cleared or approved by the FDA. This assay has been validated pursuant to the CLIA regulations and is used for clinical purposes. Test Performed by [facility], [employer] [place], [address] [place] [address] Francisco J Levy M.D., Ph.D., Director of Laboratories , CLIA [id number] Please note: ??Effective 05/07/2016, HPV testing will be performed using [employer]'s APTIMA test which targets mRNA. Detecting mRNA instead of DNA, as in older methods, offers significant improvements in specificity. 11/20/2018 10:5 0 AM EDT Patricia Asher MD HISTORICAL/NON ORDERABLE LABS Fi nal Result [facility] [address] * Colonoscopy (02/17/2015) Colonoscopy Normal Normal 02/17/2015 Whitley Kerr [facility] Edited Result - Final from Last 3 Months or Most Recently Relevant to Health Maintenance Insurance [facility] C3 HSN PARTIAL Care Teams Road Manager Relationship Specialty Start Date End Date Patricia Asher MD [address] [place] [address] PCP - General Family Medicine 05/05/13 Zachary Garcia, PharmD [address] [place] [address] Pharmacist Internal Medicine 12/24/22
--- OUTSIDE RECORDS SUMMARY | 2024-09-30 09:56 | XMS_ITS | Encounter Summary ---
Author Organization [employer] Address [address] [place] [address] Care Team Providers Care Government Teacher Name Role Phone Patricia Asher MD Primary Care Provider [phone] Zachary Garcia PharmD Unavailable [phone] Reason for Visit * Reason Onset Date Comments Appointment Request 05/27/2024 Encounter Details Date Type Department Care Team ([facility] st Contact Info) Description 05/27/2024 Telephone [facility] MEDICINE [address] [place], [place] [phone] Patricia Asher MD [address] [place], [place] [phone] Appointment Request Social History Tobacco Use Types Packs/Day Years Used Date Smoking Tobacco: Never Passive Smoke Exposure: Never Smokeless Tobacco: Never Alcohol Answer Date Recorded Frequency of Alcohol [...] Orientation Straight 06/25/2022 10 :21 AM EDT documented as of this encounter Miscellaneous Notes * Telephone Encounter - Chaka Khalil - 05/27/2024 8:39 AM EDT Tc from pt requesting to r/s PAP/DM appt scheduled for today 05/27/24 with PCP, Appt has been cancelled. Resolution Agent attempted to r/s however zero availability. Please contact at [phone] documented in this encounter Plan of Treatment Upcoming Encounters Date Type Department Care Team (Late st Contact Info) Description 10/05/2024 10:15 AM EST Office Visit [address] [address] Patricia Asher MD [address] [place] [phone] 10/28/2024 10:30 AM EST Medication Management [address] [address] Zachary Garcia, PharmD [address] [place] [phone] 12/11/2024 9:30 AM EDT Office Visit [facility] OPTOMETRY [address] [place] [address] Yuliana Cedeño, OD [address] [place] [address] documented as of this encounter Goals Goal Patient Goal Type Associated Problems Recent Progress Patient-Stated? Author Blood Pressure < 140/90 Blood Pressure 134/74(2023 10:19 AM EST) No Zachary Garcia PharmD Hemoglobin A1c < 7 Result Component 7.5( 8:59 AM EST) No Zachary Garcia PharmD documented as of this encounter Visit Diagnoses Not on filedocumented in this encounter Additional Health Concerns Assessment Noted Time PHQ-9 Depression Total Score: 0 12/23/19 24 9:11 AM EDT documented as of this encounter Care Teams Government Teacher Relationship Specialty Start Date End Date Patricia Asher MD [address] [place] [address] PCP - General Family Medicine 05/05/13 Zachary Garcia PharmD [address] [place] [address] Pharmacist Internal Medicine 12/24/22 documented as of this encounter
--- OUTSIDE RECORDS SUMMARY | 2024-09-30 09:56 | XMS_ITS | Encounter Summary ---
Author Organization [employer] Address [address] [place] [address] Care Team Providers Care Wood Bucker Name Role Phone Patricia Asher MD Primary Care Provider [phone] Zachary Garcia PharmD Unavailable [phone] Encounter Details Date Type Department Care Team (Latest Contact Info) Description 09/11/2019 Abstract [facility] CONVERSIONS Dental, Provider, DDS Social History Tobacco Use Types Packs/Day Years Used Date Smoking Tobacco: Never Assessed Comments Unknown Sex and Gender Information Value Date Recorded Sex Assigned at Female 06/25/2022 10:21 AM EDT Legal Sex Female 10:21 AM EDT Gender Identity Female 06/25/2022 10:21 AM EDT Sexual Orientation Straight 06/25/2022 10 :21 AM EDT documented as of this encounter Plan of Treatment Upcoming Encounters Date Type Department Care Team ( st Contact Info) Description 10/05/2024 10:15 AM EST Office Visit [facility] MEDICINE [address] [place] [phone] Patricia Asher MD [address] [place] [address] 10/28/2024 10:30 AM EST Medication Management [facility] MEDICINE [address] [place] [address] Zachary Garcia, PharmD [address] [place] [address] 12/11/2024 9:30 AM EDT Office Visit [facility] OPTOMETRY [address] [place] [phone] Yuliana Cedeño, OD [address] [place] [address] documented as of this encounter Visit Diagnoses Not on filedocumented in this encounter Care Teams Wood Bucker Relationship Specialty Start Date End Date Patricia Asher MD [address] [place] [phone] PCP - General Family Medicine 05/05/13 Zachary aGrcia, RomuloD [address] [place] [phone] Pharmacist Internal Medicine 12/24/22 documented as of this encounter
--- OUTSIDE RECORDS SUMMARY | 2024-09-30 09:56 | XMS_ITS | Encounter Summary ---
Author Organization [employer] Address [address] [place] [address] Care Team Providers Care Behavior Specialist Name Role Phone Patricia Asher MD Primary Care Provider [phone] Zachary Garcia PharmD Unavailable [phone] Reason for Visit * Reason Comments Med Refill Encounter Details Date Type Department Care Team ([facility] st Contact Info) Description 09/05/2023 Refill [facility] [address] [place], [place] [phone] Patricia Asher MD [address] [place], [place] [phone] Social History Tobacco Use Types Packs/Day Years Used Date Smoking Tobacco: Never Passive Smoke Exposure: Never Smokeless Tobacco: Never Housing Stability Answer Date Recorded What is your housing situation today? I have sherman guerrier 06/10/[address] you li ve. Do you have problems with any of the following? None of the above 06/10/2023 Food Insecurity Answer Date Recorded Within the past 12 months, y ou worried that your food would run out before you got money to buy more: Never True 06/10/2023 Within the past 12 months,th e food you bought just didn't last and you didn't have enough money to get more: Never True Transportation Answer Date Recorded In the past 12 months, has l ack of transportation kept you from medical appts, meetings, work or from getting things needed for daily living? No 06/10/2023 Utilities Answer Date Recorded In the past 12 months, has t he electric, gas, oil or water company threatened to shut off services in your home? No 06/10/2023 Depression Answer Date Recorded Patient Health Questionnaire-2 Score 0 09/06/2022 Comments Unknown Sex and Gender Information Value [...] Description 10/05/2024 10:15 AM EST Office Visit [facility] [address] [place] [address] Patricia Asher MD [address] [place] [address] 10/28/2024 10:30 AM EST Medication Management [facility] [address] [place] [address] Zachary Garcia PharmD [address] [place] [address] 12/11/2024 9:30 AM EDT Office Visit [facility] [address] [place] [address] Yuliana Cedeño, OD [address] [place] [address] documented as of this encounter Goals Goal Patient Goal Type Associated Problems Recent Progress Patient-Stated? Author Blood Pressure < 140/90 Blood Pressure 134/74(2023 10:19 AM EST) No Zachary Garcia PharmKortney Hemoglobin A1c < 7 Result Component 7.5( 8:59 AM EST) No Zachary Garcia PharmD documented as of this encounter Visit Diagnoses Not on filedocumented in this encounter Care Teams Behavior Specialist Relationship Specialty Start Date End Date Patricia Asher MD [address] [place] [id number] PCP - General Family Medicine 05/05/13 Zachary Garcia, PharmD [address] [place] [address] Pharmacist Internal Medicine 12/24/22 documented as of this encounter
--- OUTSIDE RECORDS SUMMARY | 2024-09-30 09:56 | XMS_ITS | Encounter Summary ---
Author Organization [employer] Address [address] [place] [address] Care Team Providers Care Elderly Caregiver Name Role Phone Patricia Asher MD Primary Care Provider [phone] Zachary Garcia PharmD Unavailable [phone] Reason for Visit * Reason Onset Date Comments Lab Orders 02/07/2024 Appointment Request 02/07/2024 Encounter Details Date Type Department Care Team (Late st Contact Info) Description 02/07/2024 Telephone [facility] MED[facility]INE [address] [place], [place] [phone] Patricia Asher MD [address] [place], [place] [phone] Lab Orders; Appointment Request Social History Tobacco Use Types [...] * Telephone Encounter - Chaka Khalil - 02/07/2024 10:56 AM EDT Tc from pt requesting to r/s PAP appt scheduled for 02/11/24 with PCP, appt was cancelled. Jewel Waxer attempted to r/s however zero availability, Please contact at [phone] documented in this encounter Plan of Treatment Upcoming Encounters Date Type Department Care Team (Late st Contact Info) Description 10/05/2024 10:15 AM EST Office Visit [facility] MED[facility]INE [address] [place] [phone] Patricia Asher MD [address] [place] [phone] 10/28/2024 10:30 AM EST Medication Management [facility] [address] [place] [phone] Zachary Garcia, PharmD [address] [place] [phone] 12/11/2024 9:30 AM EDT Office Visit [facility] OPTOMETRY [address] [place] [address] Yuliana Cedeño, OD [address] [place] [address] documented as of this encounter Goals Goal [...] documented as of this encounter Care Teams Elderly Caregiver Relationship Specialty Start Date End Date Patricia Asher MD [address] [place] [address] PCP - General Family Medicine 05/05/13 Zachary Garcia PharmD [address] [place] [address] Pharmacist Internal Medicine 12/24/22 documented as of this encounter
--- OUTSIDE RECORDS SUMMARY | 2024-09-30 09:56 | XMS_ITS | Encounter Summary ---
Author Organization [employer] Address [address] [place] [address] Care Team Providers Care Continuous Miner Operator Name Role Phone Patricia Asher MD Primary Care Provider [phone] Zachary Garcia PharmD Unavailable [phone] Encounter Details Date Type Department Care Team (Latest Contact Info) Description 09/08/2018 Abstract [facility] CONVERSIONS Dental, Provider, DDS Social History Tobacco [...] Description 10/05/2024 10:15 AM EST Office Visit [facility] MED[facility]INE [address] [place] [phone] Patricia Asher MD [address] [place] [address] 10/28/2024 10:30 AM EST Medication Management [facility] [address] [place] [address] Zachary Garcia, PharmD [address] [place] [address] 12/11/2024 9:30 AM EDT Office Visit [facility] OPTOMETRY [address] [place] [phone] Yuliana Cedeño, OD [address] [place] [address] documented as of this encounter Visit Diagnoses Not on filedocumented in this encounter Care Teams Continuous Miner Operator Relationship Specialty Start Date End Date Patricia Asher MD [address] [place] [phone] PCP - General Family Medicine 05/05/13 Zachary Garcia, RomuloD [address] [place] [phone] Pharmacist Internal Medicine 12/24/22 documented as of this encounter
[2024-09-30 11:21] LABS: Alanine Aminotransferase 25 U/L (0-31); Alkaline Phosphatase 65 U/L (39-117); Anion Gap 11 (12-20); Aspartate Amino Transferase 22 U/L (5-31); Bilirubin Total 0.6 mg/dL (0.0-1.0); Blood Urea Nitrogen 10 mg/dL (9-16); Calcium 8.9 mg/dL (8.4-10.2); Carbon Dioxide 26 mmol/L (22-29); Chloride 108 mmol/L (96-108); Cholesterol 114 mg/dL (<200); Estimated Glomerular Filt Rate > 60; Glucose Random 111 mg/dL (60-115); HDL Cholesterol 50 mg/dL (>40); LDL Cholesterol Calculated 46 mg/dL (<100); Potassium 4.7 mmol/L (3.3-5.1); Sodium 140 mmol/L (135-145); Total Protein 7.1 g/dL (6.5-8.0); Triglycerides 93 mg/dL (<150)
[2024-09-30 11:25] LABS: Reflex LDLD? No
[2024-09-30 11:47] LABS: Creatinine Urine 156.56 mg/dL; Folate 11.1 ng/mL (> or = 4.0); Microalbum/Creatinine Ratio Ur 17.8 ug/mg cr (<30); Vitamin B12 386 pg/mL (200-900)
== END 2024-09-30 09:29 | disposition home or self-care (01) ==
LOC: HO.HHCL 09:28
PROVIDERS: Visit Provider Family Medicine
DX: E11.9 Type 2 diabetes mellitus without complications (principal); I10 Essential (primary) hypertension; M79.674 Pain in right toe(s)
CPT/HCPCS: 36415; 73660; 80053; 80061; 82043; 82570; 82607; 82746

== ENCOUNTER → 2024-09-30 09:51 | Outpatient (BNV) | payer MEDICAID, SELFPAY | PROVIDERS: Visit Provider Radiology Diagnostic Radiology | DX: M79.674 Pain in right toe(s) (principal) | CPT/HCPCS: 73660 ==

== ENCOUNTER 2025-03-23 10:36 | Outpatient (REF) | payer MEDICAID, SELFPAY ==
--- NOTE | ~2025-03-23 | XR_ITS ---
EXAMINATION: XR SHOULDER 2 OR MORE VIEWS LEFT HISTORY: atraumatic shoulder pain x3d COMPARISON: There are no prior studies available for comparison. FINDINGS: Four views of the left shoulder are submitted. Osseous mineralization is normal. There is no fracture or dislocation. The glenohumeral joint is maintained. There is mild degenerative change of the AC joint with joint space narrowing. The soft tissues are unremarkable. XR/XR shoulder LT min 2V IMPRESSION: Mild degenerative change of the AC joint. Electronically signed by: Joon Suazo MD 03/23/2025 11:17 AM EDT
--- OUTSIDE RECORDS SUMMARY | 2025-03-23 11:40 | XMS_ITS | Clinical Summary ---
Author Organization [employer] Address [address] [facility] [address] [place] [address] Care Team Providers Care Mold Sander Name Role Phone Patricia Asher MD Primary Care Provider [phone] Zachary Garcia PharmD Unavailable Allergies No known active allergies Medications * [...] as needed for pain 150 g 2 023 Active glucose blood (FREESTYLE LITE) test stripIndications: Type 2 diabetes mellitus without complication, without long-term current use of insulin ([facility]) Use to test blood sugar twice daily as directed 150 each 3 024 Active montelukast (Singulair) 10 MG tablet TAKE 1 TABLET BY MOUTH EVERY EVENING 90 tablet 3 024 Active cholecalciferol (Vitamin D-3) 25 MCG tablet TAKE 1 TABLET BY MOUTH EVERY DAY 90 tablet 3 024 Active Dulaglutide (Trulicity) 3 MG/0.5ML solution auto-injector Inject 0.5 mL (3 mg) under the skin 1 (one) time per week. 2 mL 11 024 Active enalapril (Vasotec) 20 MG tabletIndications :Essential hypertension TAKE 1 TABLET BY MOUTH TWICE DAILY 180 tablet 3 024 Active atorvastatin (Lipitor) 40 MG tablet TAKE 1 TABLET BY MOUTH AT BEDTIME 90 tablet 3 024 Active metFORMIN (Glucophage) 1000 MG tablet TAKE 1 TABLET BY MOUTH TWICE DAILY IN THE MORNING AND IN THE EVENING WITH MEALS 180 tablet 3 024 Active budesonide-formot guillermo (Symbicort) 80-4.5 MCG/ACT inhaler Administer 2 puffs twice a day. May use additional 1-2 puffs every 4 hours as needed for wheezing. Max 12 puffs per day. Rinse mouth with water after use to reduce aftertaste and incidence of candidiasis. 1 each 11 025 Active TRUEplus Lancets 33G miscIndications:T ype 2 diabetes mellitus without complication, without long-term current use of insulin ([facility]) Use to test blood sugar twice daily as directed 200 each 2 025 Active meloxicam (Mobic) 7.5 MG tabletIndications :Primary osteoarthritis of both knees TAKE 1 TABLET BY MOUTH ONE OR TWO TIMES DAILY NEEDED 60 tablet 5 025 Active albuterol (Ventolin HFA) 108 (90 Base) MCG/ACT inhalerIndication s:Moderate persistent asthma without complication Inhale 2 puffs every 4 (four) hours if needed for shortness of breath or wheezing. 18 g 1 025 Active Spacer/Aero-Holdi ng Chambers (OptiChamber Olesya) misc 1 each every 4 (four) hours if needed (asthma). 1 each 025 Active Aspirin Low Dose 81 MG EC tabletIndications :Type 2 diabetes mellitus without complication, without long-term current use of insulin ([facility]) TAKE 1 TABLET BY MOUTH EVERY DAY 90 tablet 3 025 Active acetaminophen (Tylenol 8 Hour) 650 MG ER tabletIndications :Acute pain of left shoulder Take 1 or 2 tablets every 8 hours as needed for pain, no more than 6 tablets per day 60 tablet 1 025 Active lidocaine (Lidoderm) 5 % patch Apply to affected areas (bilateral knees) once daily. Remove after 12 hours. 60 patch 3 023 2024 Discontinued(M ed list cleanup (will not trigger notification to Pharmacy)) gabapentin (Neurontin) 300 MG capsule TAKE 1 CAPSULE BY MOUTH TWICE DAILY 023 2024 Discontinued(M ed list cleanup (will not trigger notification to Pharmacy)) aspirin (Aspirin Adult Low Strength) 81 MG EC tabletIndications :Type 2 diabetes mellitus without complication, without long-term current use of insulin ([facility]) TAKE 1 TABLET BY MOUTH ONCE DAILY 90 tablet 3 024 2024 Discontinued Active Problems Problem Noted Date Diagnosed Date Positive colorectal cancer screening using Colog uard test 10/07/2024 Assessment & Plan (10/07/2024 6:02 AM EST): - last colonoscopy Mar [address] Kerr. Negative. - 09/18/24 Positive cologuard - refer to GI for colonoscopy Depression 11/17/2023 Assessment & Plan (10/05/2024 12:57 PM EST): - PHQ9 score 11 - will refer to integrated behavioral health service Assessment & Plan (12/23/2023 9:31 AM EDT): [...] PHQ9 score 11 - will refer to integrated behavioral health service Premature ventricular beats 09/09/2022 [...] History of stroke 09/06/2022 Assessment & Plan (01/31/2025 10:59 PM EDT): - Work on secondary prevention - lifestyle modifications - high-intensity statin and ASA - control BP Assessment & Plan (10/07/2024 6:02 AM EST): - Work on secondary prevention - lifestyle modifications - high-intensity statin and ASA - control BP Assessment & Plan (08/15/2023 10:06 AM EST): [...] Plan (08/15/2023 9:57 AM EST): - orthopedist: [facility] - continue conservative management and schedule carpal tunnel release surgery when she is ready - activity modification - use wrist brace for night time Assessment & Plan (03/03/2023 5:06 PM EDT): - orthopedist: [facility] - continue conservative management and schedule carpal tunnel release surgery when she is ready - activity modification - use wrist brace for night time Assessment & Plan (12/10/2022 11:45 AM EDT): - orthopedist: [facility] - continue conservative management and schedule carpal tunnel release surgery when she is ready - activity modification - use wrist brace for night time Assessment & Plan (09/09/2022 11:05 AM EST): - orthopedist: [facility] - continue conservative management and schedule carpal tunnel release surgery when she is ready - activity modification - will prescribe wrist brace for night time Asthma 09/04/2022 Assessment & Plan (01/31/2025 11:00 PM EDT): - Currently on fluticasone ICS and albuterol, will switch to budesonide / formoterol (Symbicort) - Continue montelukast as maintenance - Switch albuterol prn to Sybmicort additional use Assessment & Plan (10/07/2024 6:05 AM EST): - Currently on fluticasone ICS and albuterol, will switch to budesonide / formoterol (Symbicort) - Continue montelukast as maintenance - Switch albuterol prn to Sybmicort additional use Assessment & Plan (08/15/2023 9:58 AM EST): [...] (09/09/2022 11:21 AM EST): - Evaluated by tour consultant. No inflammatory arthritis or autoimmune disorder. Vascular [...] 11:46 AM EDT): - Evaluated by Dr. Forerster on 06/15/19. Following with [facility] provider, last [...] Osteoarthritis of knee 01/03/2017 Assessment & Plan (01/31/2025 10:58 PM EDT): Seen by ortho on 01/06/2018 and Received steroid injection in R knee. Referred to finish painter and received injection. Seen and evalauted by tour consultant. No inflammatory arthritis. Recommended to continue judicious use of gabapentin. Discussed about working on lifestyle modifications. Treatment Hx: meloxicam 7.5 mg once or twice daily, pt is no longer taking it Continue APAP prn Continue Lidoderm patch and diclofenac gel Assessment & Plan (08/15/2023 10:02 AM EST): Seen by ortho on 01/06/2018 and Received steroid injection in R knee. Referred to finish painter and received injection. Seen and evalauted by tour consultant. No inflammatory arthritis. Recommended to continue judicious use of gabapentin. Discussed about working on lifestyle modifications. Treatment Hx: meloxicam 7.5 mg once or twice daily, pt is no longer taking it Continue APAP prn Add Lidoderm patch and diclofenac gel Assessment & Plan (03/03/2023 5:08 PM EDT): Seen by ortho on 01/06/2018 and Received steroid injection in R knee. Referred to finish painter and received injection. Seen and evalauted by tour consultant. No inflammatory arthritis. Recommended to continue judicious use of gabapentin. Discussed about working on lifestyle modifications. Treatment Hx: meloxicam 7.5 mg once or twice daily, pt is no longer taking it Continue APAP prn Add Lidoderm patch and diclofenac gel Assessment & Plan (09/09/2022 11:20 AM EST): Seen by ortho on 01/06/2018 and Received steroid injection in R knee. Referred to finish painter and received injection. Seen and evalauted by tour consultant. No inflammatory arthritis. Recommended to continue judicious [...] by Dr. Forrester on 06/15/19. Following with [facility] provider, last seen in Apr 2022 - [...] by Dr. Forrester on 06/15/19. Following with [facility] provider, last seen in Apr 2022 - CEAP Class III. - Currently managed by conservative management. - Continue compression stocking, low sodium intake, and leg elevation. - 08/20/19 Venous study right CFV, GSV, SFJ valve, SSV, and popliteal insufficiency; left CFV, SGV, SFJ valve, popliteal, and SSV insufficiency; L > R Type 2 diabetes mellitus 01/10/2016 Assessment & Plan (01/21/2025 10:09 AM EDT): - A1C 7.0% on 10/05/24 - Continue working on lifestyle modifications - Continue Prandin 1 mg with breakfast, 2 mg with lunch, and 1 mg with dinner - Continue Metfomrin 1000mg BID. - Continue dulaglutide (Trulicity) to 3.0 mg weekly - Treatment Hx: Jardiance 10 mg daily - discontinued due to symptom - Last eye exam: Aug 2023, no diabetic retinopathy - Last foot exam: 07/01/24. - Light foot exam. No obvious abnormality, no tenderness or swelling on her right toes 10/05/24 - Last microalbumin test: Sep 2024 No microalbuminuria. - Last lipid profile: Sep 2024 - Last dental exam: - Follow up in 3 mo Assessment & Plan (10/07/2024 6:10 AM EST): - A1C 7.0% on 10/05/24 - Continue working on lifestyle modifications - Continue Prandin 1 mg with breakfast, 2 mg with lunch, and 1 mg with dinner - Continue Metfomrin 1000mg BID. - Continue dulaglutide (Trulicity) to 3.0 mg weekly - Treatment Hx: Jardiance 10 mg daily - discontinued due to symptom - Last eye exam: Aug 2023, no diabetic retinopathy - Last foot exam: 07/01/24. - Light foot exam. No obvious abnormality, no tenderness or swelling on her right toes 10/05/24 - Last microalbumin test: Sep 2024 No microalbuminuria. - Last lipid profile: Sep 2024 - Last dental exam: - Follow up in 3 mo Assessment & Plan (07/01/2024 9:33 AM EST): [...] exam: Essential hypertension 07/19/2015 Assessment & Plan (01/21/2025 10:10 AM EDT): - Goal BP < 140/90 er JNC-8 and < 130/80 per ACC/AHA guideline - BP at goal today - Co-managed with ethylene plant operator and pharmacist - Treatment Hx: HCTZ was discontinued because she was diagnosed with gout / mild hyperuricemia and hypokalemia - Continue working on lifestyle modifications - Continue Enalapril 20 mg bid - Continue metoprolol succinate 12.5 mg daily for frequent PVC. - Follow up in 3 mo, sooner if any problem arises Assessment & Plan (10/05/2024 12:56 PM EST): - Goal BP < 140/90 er JNC-8 and < 130/80 per ACC/AHA guideline - Initial BP not at goal today; second BP reading in office was better. - Co-managed with ethylene plant operator and pharmacist - Treatment Hx: HCTZ was discontinued because she was diagnosed with gout / mild hyperuricemia and hypokalemia - Continue working on lifestyle modifications - Continue Enalapril 20 mg bid - Continue metoprolol succinate 12.5 mg daily for frequent PVC. - Follow up in 3 mo, sooner if any problem arises Assessment & Plan (07/06/2024 9:45 AM EST): - Goal BP < 140/90 er JNC-8 and < 130/80 per ACC/AHA guideline - Initial BP not at goal today; second BP reading in office was better. - Co-managed with ethylene plant operator and pharmacist - Treatment Hx: HCTZ was [...] BP at goal today - Co-managed with ethylene plant operator and pharmacist - Treatment Hx: HCTZ was [...] effect of stroke 2014 Assessment & Plan (01/31/2025 11:00 PM EDT): - pt has been using a cane - Patient would like to have a rollator so that she can rest as needed - fall precaution Assessment & Plan (08/15/2023 9:57 AM EST): [...] fall precaution Dyslipidemia 06/03/2013 Assessment & Plan (01/21/2025 10:08 AM EDT): - Current medication: atorvastatin 40 mg qhs - Most recent lab: Jul 2023 - High-intensity statin therapy is indicated; consider increasing after next lab - Continue working on lifestyle modifications Assessment & Plan (10/05/2024 12:57 PM EST): - Current medication: atorvastatin 40 mg qhs - Most recent lab: Jul 2023 - High-intensity statin therapy is indicated; consider increasing after next lab - Continue working on lifestyle modifications Assessment & Plan (11/17/2023 1:23 PM EDT): [...] Encounters Date Type Department Care Team Description 03/19/2025 9:30 AM EDT Office Visit [facility] [address] [place] [phone] Armani Nunn ANP Acute pain of left shoulder (Primary Dx); Myalgia 03/19/2025 Travel 02/25/2025 Travel 02/25/2025 Refill [facility] [address] [place] [id number] Zachary Garcia, PharmD Type 2 diabetes mellitus without complication, without long-term current use of insulin ([facility]) 02/20/2025 Refill [facility] [address] [place] [phone] Loco Mojica MD Moderate persistent asthma without complication 01/21/2025 10:15 AM EDT Office Visit [facility] [address] [place] [phone] Patricia Asher MD Type 2 diabetes mellitus without complication, without long-term current use of insulin (CMS/HCC) (Primary Dx); Essential hypertension; Dyslipidemia; Varicose veins of both lower extremities, unspecified whether complicated; Vascular insufficiency; Primary osteoarthritis of both knees; Hemiparesis affecting right side as late effect of stroke (CMS/HCC); History of stroke; Moderate persistent asthma without complication 01/21/2025 Travel 01/06/2025 3:40 PM EDT Office Visit [facility] [address] [place] [address] Loco Mojica MD Rash (Primary Dx); Influenza-like symptoms; Moderate persistent asthma without complication 01/06/2025 Travel from Last 3 Months Immunizations Immunization Administration Dates Next Due Hep B, adult [...] Date Recorded Patient Health Questionnaire-9 Score 0 01/21/2025 Patient Health Questionnaire-9 Score 0 01/21/2025 Last PHQ-9: Questionnaire Data Not on file 0 01/21/2025 Housing Stability Answer Date Recorded What is your housing situation today? I have sherman guerrier 01/21/[address] you li ve. Do you have problems with any of the following? None of the above 01/21/2025 Food Insecurity Answer Date Recorded Within the past 12 months, y ou worried that your food would run out before you got money to buy more: Never True 01/21/2025 Within the past 12 months,th e food you bought just didn't last and you didn't have enough money to get more: Never True Transportation Answer Date Recorded In the past 12 months, has l ack of transportation kept you from medical appts, meetings, work or from getting things needed for daily living? No 01/21/2025 Utilities Answer Date Recorded In the past 12 months, has t he electric, gas, oil or water company threatened to shut off services in your home? No 01/21/2025 Depression Answer Date Recorded Patient Health Questionnaire-2 Score 0 01/21/2025 Internet Access Answer Date Recorded Internet Access Q1 Yes 01/21/2025 Internet Access Q2 Not on file 01/21/2025 Comments No Sex and Gender Information Value Date Recorded Sex Assigned at Female 06/25/2022 10:21 AM EDT Legal Sex Female 10:21 AM EDT Gender Identity Female 06/25/2022 10:21 AM EDT Sexual Orientation Straight 06/25/2022 10 :21 AM EDT Last Filed Vital Signs Vital Sign Reading Time Taken Comments Blood Pressure 140/90 03/19/2025 10:03 AM EDT Pulse 72 03/19/2025 8:59 AM EDT Temperature 36.2 C (97.1 F) 01/21/2025 9:40 AM EDT Respiratory Rate 16 03/19/2025 8:59 AM EDT Oxygen Saturation 99% 01/06/2025 3:07 PM EDT Inhaled Oxygen Concentration - - Weight 79.4 kg (175 lb) 03/19/2025 8:59 AM EDT Height 152.4 cm (5') 03/19/2025 8:59 AM EDT Body Mass Index 34.18 03/19/2025 8:59 AM EDT Plan of Treatment Upcoming Encounters Date Type Department Care Team (Late st Contact Info) Description 03/26/2025 10:30 AM EDT Office Visit [facility] [address] [place] [address] Davidson, Megan, OD [address] [place] [phone] 04/28/2025 9:30 AM EDT Office Visit [facility] [address] [place] [phone] Patricia Asher MD [address] [place] [address] Health Maintenance Due Date Last Done Comments CT Colonography 1960 FIT 1960 Sigmoidoscopy 1960 Disability Screening 1960 RSV Patients and Patients Aged 60 years or older (1 - Risk 60-74 years 1-dose series) 2022 COVID-19 Vaccine ( season) 2024 09/06/2022, 09/12/2021, 03/08/2021, Additional history exists Colonoscopy 02/17/2025 02/17/2015 Influenza Vaccine (#1) 2025 , 06/24/2023, 07/23/2022, Additional history exists Alcohol/Substance Use Screening 07/01/2025 07/01/2024 Eye Exam 07/15/2025 07/15/2023, 06/27, 07/15/2023, Additional history exists Diabetes: Hemoglobin A1C 07/24/2025 025, 10/05/2024, 07/01/2024, Additional history exists FOBT 09/18/2025 09/18/2024 Diabetes: Urine Protein Screening 09/30/2025 09/30/2024, 08/21/2023, 02/15/2021, Additional history exists Lipid Panel 09/30/2025 09/30/2024, 07/27, 02/15/2021 Diabetes: Foot Exam 10/05/2025 10/05/2024, 07/01/2024, 07/01/2024, Additional history exists Mammogram 11/20/2025 11/21/2023, 10/25, 11/17/2021, Additional history exists Depression Screening 01/21/2026 01/21/2025, 01/22/20 SDOH Screening 01/21/2026 01/21/2025 Tobacco Screening 03/19/2026 03/19/2025 Colorectal Cancer Screening 09/18/2027 FIT DNA/Cologuard 09/18/2027 09/18/2024 Cervical Cancer Screening 07/01/2029 HPV/Cotest 07/01/2029 07/01/2024, 11/20/2018 Pap Smear 07/01/2029 07/01/2024 DTaP/Tdap/Td Vaccines (3 - Td or Tdap) 09/06/2032 09/06/2022, 10/12/2010 Hepatitis B Vaccines Completed 01/10/2016, 10/18/2015, 04/14/2015 Zoster Vaccines Completed 07/07/2019, 04/29/2019 Pneumococcal Vaccine: 50+ Years Completed 02/28/2023, 10/07/2010, 10/07/2010 HIB Vaccines Aged Out No longer eligi ble based on patient's age to complete this topic HIV Screening Discontinued HPV Vaccines Aged Out No longer eligi ble based on patient's age to complete this topic Hepatitis A Vaccines Aged Out No long er eligible based on patient's age to complete this topic Hepatitis C Screening Discontinued IPV Vaccines Aged Out No longer eligi ble based on patient's age to complete this topic Meningococcal B Vaccine Aged Out No l onger eligible based on patient's age to complete [...] Author Blood Pressure < 140/90 Blood Pressure 140/90(2024 10:03 AM EDT) No Zachary Garcia, Camilo Hemoglobin A1c < 7 Result Component 6.7( 9:21 AM EDT) Zachary Lopez, Camilo Procedures Procedure Name Priority Date/Time Associated Diagnosis Comments XR SHOULDER 2+ VIEWS LEFT Routine 03/23/2025 10:21 AM EDT Acute pain of left shoulder POCT GLUCOSE Routine 01/21/2025 9:40 AM EDT Type 2 diabetes mellitus without complication, without long-term current use of insulin ([facility]) POCT GLYCOSYLATED HEMOGLOBIN (HGB A1C) Routine 01/21/2025 9:21 AM EDT Type 2 diabetes mellitus without complication, without long-term current use of insulin ([facility]) POCT INFLUENZA B (ID NOW RAPID MOLECULAR) Routine 01/06/2025 3:24 PM EDT Moderate persistent asthma without complication POCT INFLUENZA A (ID NOW RAPID MOLECULAR) Routine 01/06/2025 3:24 PM EDT Moderate persistent asthma without complication POCT RAPID STREP A Routine 01/06/2025 3: 24 PM EDT Moderate persistent asthma without complication POCT RAPID COVID ANTIGEN Routine 01/06/2025 3:24 PM EDT Moderate persistent asthma without complication ALBUMIN, RANDOM URINE W/CREATININE Routine 09/30/2024 9:33 AM EST Type 2 diabetes mellitus without complication, without long-term current use of insulin ([facility]) Essential hypertension LIPID PANEL WITH REFLEX TO DIRECT LDL Routine 09/30/2024 9:33 AM EST Type 2 diabetes mellitus without complication, without long-term current use of insulin ([facility]) LAB COLOGUARD COLON CANCER SCREEN Routine 09/18/2024 8:47 AM EST Screening for colon cancer HPV MRNA E6/E7 REFLEX TO HPV 16, 18/45 Routine 07/01/2024 12:00 AM EST PAP SMEAR Routine 07/01/2024 12:00 AM EST Encounter for well woman exam with routine gynecological exam BI MAMMOGRAM SCREENING TOMOSYNTHESIS BILATERAL Routine 11/21/2023 12:05 PM EDT HM COLONOSCOPY Routine 02/17/2015 from Last 3 Months or Most Recently Relevant to Health Maintenance Results * XR Shoulder 2+ Views Left (03/23/2025 10:21 AM EDT) Anatomical Region Laterality Modality Upper Extremities, Shoulder Left Radi ographic Imaging 03/23/2025 10:2 1 AM EDT Narrative 03/23/2025 11:20 AM EDT [address] [address] XRay Report Signed Patient: Miryam Moura I MR#: [id number] : 1960 Acct:[id number] Age/Sex: 65 / F ADM Date: 03/23/25 [facility]: Armani Nunn ASSISTANT CENTER DIRECTOR Ordering Physician: ARMANI NUNN NP Date of Service: 03/23/25 Procedure(s): XR shoulder LT min 2V Accession Number(s): [id number] cc: ARMANI NUNN NP EXAMINATION: XR SHOULDER 2 OR MORE VIEWS LEFT HISTORY: atraumatic shoulder pain x3d COMPARISON: There are no prior studies available for comparison. FINDINGS: Four views of the left shoulder are submitted. Osseous mineralization is normal. There is no fracture or dislocation. The glenohumeral joint is maintained. There is mild degenerative change of the AC joint with joint space narrowing. The soft tissues are unremarkable. XR/XR shoulder LT min 2V IMPRESSION: Mild degenerative change of the AC joint. Electronically signed by: Joon Suazo MD 03/23/2025 11:17 AM EDT Dictated By: Joon Suazo MD Signed By: <Electronically signed by Joon Suazo MD in OV> 03/23/25 1117 DD/ 1021 TD/TT: 03/23/25 1025 Building Manager: Procedure Note Donotuseinterpreter, Image - 03/23/2025 [facility] [address] [place] [address] XRay Report Signed Patient: Miryam Moura IMR#: [id number] : 1960cct:[id number] Age/Sex: 65 / FADM Date: 03/23/25 Loc: [facility] Attending Dr: Armani Nunn ASSISTANT CENTER DIRECTOR Ordering Physician: ARMANI NUNN NP Date of Service: 03/23/25 Procedure(s): XR shoulder LT min 2V Accession Number(s): [id number] cc: ARMANI NUNN NP EXAMINATION: XR SHOULDER 2 OR MORE VIEWS LEFT HISTORY: atraumatic shoulder pain x3d COMPARISON: There are no prior studies available for comparison. FINDINGS: Four views of the left shoulder are submitted. Osseous mineralization is normal. There is no fracture or dislocation. The glenohumeral joint is maintained. There is mild degenerative change of the AC joint with joint space narrowing. The soft tissues are unremarkable. XR/XR shoulder LT min 2V IMPRESSION: Mild degenerative change of the AC joint. Electronically signed by: Joon uSazo MD 03/23/2025 11:17 AM EDT RP Dictated By: Joon Suazo MD Signed By: <Electronically signed by Joon Suazo MD in OV> 03/23/25 1117 DD/ 1021 TD/TT: 03/23/25 1025 Building Manager: Armani Nunn ANP IMG XR PROCEDURES Final Result * POCT glucose manually resulted (01/21/2025 9:40 AM EDT) Pathologist [facility] Glucose Blood, POC 156 60 - 200 mg/dL QC Media Lot # [id number] Lot# Expiration Date Blood Capillary blood specimen / Unknown 01/21/2025 9:40 AM EDT Patricia Asher MD POINT OF CARE TEST ENTER/EDIT OR DERABLES Final Result * (ABNORMAL) POCT glycosylated hemoglobin (Hgb A1c) (01/21/2025 9:21 AM EDT) Pathologist [facility] Hemoglobin A1C 6.7(A) 4.0 - 6.0 % QC Media Lot # [id number] Lot# Expiration Date [id number] Blood Capillary blood specimen / Unknown 01/21/2025 9:21 AM EDT Patricia Asher MD POINT OF CARE TEST ENTER/EDIT OR DERABLES Final Result * Influenza B (ID NOW Rapid Molecular) (01/06/2025 3:24 PM EDT) [facility] Influenza B Negative Negative, Indeterminate [facility] Swab 01/06/2025 3:24 PM EDT Loco Mojica MD POINT OF CARE TEST ENTER/EDIT OR DERABLES Final Result Performing Organization Address [facility] Co de Phone Number [facility] [address] [place] [phone] * Influenza A (ID NOW Rapid Molecular) (01/06/2025 3:24 PM EDT) [facility] Influenza A Negative Negative, Indeterminate [facility] Swab 01/06/2025 3:24 PM EDT Loco Mojica MD POINT OF CARE TEST ENTER/EDIT OR DERABLES Final Result Performing Organization Address [facility] [facility] Co de Phone Number [facility] [address] [place] [address] [phone] * POCT Rapid COVID Ag (01/06/2025 3:24 PM EDT) [facility] Rapid COVID Ag Negative [facility] Swab 01/06/2025 3:24 PM EDT Loco Mojica MD POINT OF CARE TEST ENTER/EDIT OR DERABLES Final Result Performing Organization Address [facility] Co de Phone Number [facility] [address] [place] [address] [phone] * POCT rapid strep A manually resulted (01/06/2025 3:24 PM EDT) Rapid Strep A Screen Negative Negative, None Detected [facility] Swab 01/06/2025 3:24 PM EDT Loco Mojica MD POINT OF CARE TEST ENTER/EDIT OR DERABLES Final Result Performing Organization Address [facility] Co de Phone Number [facility] [address] [place] [address] [phone] * Lipid Panel with Reflex to Direct LDL (09/30/2024 9:33 AM EST) Triglycerides 93 <150 mg/dL [facility] Comment:Desirable Triglyceri de: less than 150 mg/dLBorderline High Triglyceride 150-199 mg/dLHigh Triglyceride: 200-499 mg/dLVery High Triglyceride: greater than or equal to 5OO mg/dL Cholesterol 114 <200 mg/dL [facility] Comment:Desirable Cholestero l: less than 200 mg/dLBorderline High Cholesterol: 200-239 mg/dLHigh Cholesterol: greater than 239 mg/dL LDL Cholesterol Calculated 46 <100 mg/dL [facility] Comment:Desirable LDL: less than 100 mg/dLNear Optimal/Above Optimal LDL: 110- 129 mg/dLBorderline High LDL: 130-159 mg/dLHigh LDL: 160-189 mg/dLVery High LDL: greater than or equal to 190 mg/dL HDL Cholesterol 50 >40 mg/dL [facility] Comment:Desirable HDL: great er than 40 mg/dL Note: This HDL assay may give artificially low results in patients with liver disease. Blood 09/30/2024 9:33 AM EST 09/30/2024 10:51 AM EST Patricia Asher MD LAB BLOOD ORDERABLES Final Resul t Performing Organization Address City/[facility]/ZIP Co de Phone Number [facility] [address] [place] [address] [phone] * Albumin, Random Urine W/Creatinine (09/30/2024 9:33 AM EST) Creatinine, Urine 156.56 mg/dL [facility] Microalbumin Urine 28.0 mg/L [facility] Microalbum Creatinine Ratio Ur 17.8 <30 ug/mg cr [facility] Comment:Albumin/Creatinine R atio Reference Ranges: Normal: < 30 ug/mg creatinine Microalbuminuria: 30 - 300 ug/mg creatinineClinical Albuminuria: > 300 ug/mg creatinine Urine 09/30/2024 9:33 AM EST 09/30/2024 10:56 AM EST us Patricia Asher MD LAB URINE ORDERABLES Final Resul t [facility] [address] [place] [address] [phone] * (ABNORMAL) Cologuard?? colon cancer screening (09/18/2024 8:47 AM EST) Cologuard Result Positive( A) Negative 09/24/2024 9:46 AM EST [facility] (CLIA #:[id number]) Comment: POSITIVE TEST RESULT. A positive Cologuard result should be followed with a colonoscopy or visual examination of the colon. The normal value (reference range) for this assay is negative. TEST DESCRIPTION: Composite algorithmic analysis of stool DNA-biomarkers with hemoglobin immunoassay. Quantitative values of individual biomarkers are not [...] screened with both Cologuard and colonoscopy. (Michelle Moore et al, N Engl J Med 2014;370(14):5722-5910.) Cologuard may produce a false negative or false positive result (no colorectal cancer or precancerous polyp present at colonoscopy follow up). A negative Cologuard test result does not guarantee the absence of CRC or advanced adenoma (pre-cancer). The current Cologuard screening interval is every 3 years. ([place] [employer] Society and U.S. Multi-Society Task Force). Cologuard performance data in a 10,000 patient pivotal study using colonoscopy as the reference method can be accessed at the following location: www.[employer]/results. Additional description of the Cologuard test process, warnings and precautions can be found at www.cologLocalSortrd.com. Stool specimen (specimen) Rectal contents / Unknown 09/18/2024 8:47 AM EST 09/19/2024 7:23 AM EST Patricia Asher MD LAB MOLECULAR DIAGNOSTICS ORDERA BLES Final Result [facility] (CLIA #:[id number]) [place] [address], * HPV mRNA E6/E7 w/Reflex to HPV Genotypes 16, 18/45 (07/01/2024 12:00 AM EST) Caitlin Provider LAB CYTOLOGY ORDERABLES F inal Result [facility] [address] [place] [address] [phone] * Pap Smear (07/01/2024 12:00 AM EST) Swab Cervix uteri structure / Unknown 07/01/2024 07/02/2024 8:45 AM EST [facility] - 07/06/2024 8:28 AM EST ----- ------- Name: Damien MillerMiryam Victor Age/Sex: 64/F : 1960 Unit#: [id number] Attend Dr: Re07/01/24 Status: PRE REF Location: HO.LNP Disch: ----- ------- SPEC : [id number] RECD: 07/02/24 STATUS: IZZY PEARSONBurak NUM: [id number] JATIN: 07/01/24-[address]: Patricia Asher MD ENTERED: 07/02/24 SP TYPE: Pap Smr OTHR DR: ORDERED: Pap Smear Interpretation Satisfactory for evaluation. Negative for intraepithelial lesion or malignancy. HPV High Risk: Negative HPV Genotyping 16: Negative HPV Genotyping 18: Negative Clinical Information LMP: Postmenopausal Previous PAP test: 2019, Abnormal Material Received ThinPrep-Cervical ----- ------- Signed (signature on file) Nikolas GREGORIO Delgadillo ([facility]) 07/06/24 0828 ----- ------- END OF REPORT us Patricia Asher MD LAB CYTOLOGY ORDERABLES Final Re sult [facility] [address] [place] [address] [phone] * BI Mammogram Screening Tomosynthesis Bilateral (11/21/2023 12:05 PM EDT) Anatomical Region Laterality Modality Breast Bilateral Mammography 11/21/2023 12:0 5 PM EDT Narrative 12/07/2023 10:20 PM EDT [facility] [address] [place] [address] Mammography Report Signed Patient: Miryam Moura I MR#: [id number] : 1960 Acct:[id number] Age/Sex: 63 / F ADM Date: 11/21/23 Loc: [facility] Attending Dr: Patricia Asher MD Ordering Physician: Patricia Asher MD Results: 1Negative Date of Service: 11/21/23 Follow Up: 1 Year From Orig inal Mammogram Procedure(s): MM tomosynthesis screening BI Accession Number(s): [id number] cc: Patricia Asher MD EXAMINATION: MM SCREENING [...] signed by Tori Oh MD in OV> 12/07/232216 DD/ 1205 TD/TT: Building Manager: Procedure Note Donotuseinterpreter, Image - 12/07/2023 [facility] [address] [place], [place] [address] Mammography Report Signed Patient: Miryam Moura IMR#: [id number] : 1960cct:[id number] Age/Sex: 63 / FADM Date: 11/21/23 Loc: [facility] Attending Dr: Patricia Asher MD Ordering Physician: Patricia Asher MDResults: 1Negative Date of Service: 11/21/23Follow Up: 1 Year From Orig ina Mammogram Procedure(s): MM tomosynthesis screening BI Accession Number(s): [id number] cc: Patricia Asher MD EXAMINATION: MM SCREENING [...] by Tori Oh MD in OV> 12/07/23 2217 DD/ 1205 TD/TT: Building Manager: Patricia Asher MD IMG BI PROCEDURES Final Result * Colonoscopy (02/17/2015) Colonoscopy Normal Normal 02/17/2015 Whitley Kerr [facility] MAINTENANCE Edited Result - Final from Last 3 Months or Most Recently Relevant to Health Maintenance Insurance [facility] C3 Care Teams Mold Sander Relationship Specialty Start Date End Date Patricia Asher MD [address] [place] [address] PCP - General Family Medicine 05/05/13 Zachary Garcia, PharmD [address] [place] [address] Pharmacist Internal Medicine 12/24/22
[2025-03-23 13:52] LABS: Anion Gap 14 (12-20); Blood Urea Nitrogen 13 mg/dL (9-16); Calcium 9.1 mg/dL (8.4-10.2); Carbon Dioxide 25 mmol/L (22-29); Chloride 108 mmol/L (96-108); Estimated Glomerular Filt Rate > 60; Potassium 4.1 mmol/L (3.3-5.1); Sodium 143 mmol/L (135-145)
== END 2025-03-23 10:37 | disposition home or self-care (01) ==
LOC: HO.HHCX 10:36
PROVIDERS: PCP Nurse Practitioner Primary Care; Visit Provider Nurse Practitioner Primary Care
DX: M25.512 Pain in left shoulder (principal); M79.10 Myalgia, unspecified site
CPT/HCPCS: 36415; 73030; 80048; 82550

== ENCOUNTER → 2025-03-23 10:57 | Outpatient (BNV) | payer MEDICAID, SELFPAY | PROVIDERS: PCP Nurse Practitioner Primary Care; Visit Provider Radiology Diagnostic Radiology | DX: M19.012 Primary osteoarthritis, left shoulder (principal) | CPT/HCPCS: 73030 ==

== ENCOUNTER 2025-05-17 11:27 | Outpatient (AMB) | payer MEDICAID, SELFPAY ==
--- NOTE | 2025-05-17 11:33 | A.OFFVIS_ITS ---
Vital Signs 05/17/25 11:39 Height 5 ft 1 in Weight 161 lb BMI 30.4 BP 144/86 H Blood Pressure Location Rt brachial Position Sitting Pulse 64 Pulse Source Pulse Oximeter Pulse Oximetry (%) 99 Oxygen Delivery Method Room Air Intake Visit Reasons: colo screening pos cologuard Intake Note: New patient for recall colo screening w/ + cologuard. 09/14/2024 w/ referral. Last colo 2014 w/ Dr. Kerr. . CC; Pt denies any GI sx or concerns at this time. Biomedical Engineering Internship Required: Yes Biomedical Engineering Internship Services: Biomedical Engineering Internship Offered & Declined Accompanied by: Family/Other Allergies No Known Allergies (No Known Allergies*) Allergy (Unverified 07/25/22 08:46) HPI HPI colo screening pos cologuard: Details: 65 year old? female with past medical history of hyperlipidemia, carpal tunnel, diabetes, hypertension here today for pre colonoscopy screening.? Patient was sent to us by her PCP.? Last colonoscopy in 2014 was normal. Patient had Cologuard done recently that came back positive. Patient reports acid reflux depending on what she eats. Occasional abdominal bloating postprandially. Denies any family history of gastrointestinal disease, colon polyps, or CRC.? Denies history of difficulty with sedation or anesthesia in the past.? Negative for history of sleep apnea.? Denies any history of cardiac, renal, pulmonary, or hepatic disease.?? No history of infectious? diseases like hepatitis A, B, C, HIV or tuberculosis.? Patient is on low dose aspirin. [facility] (Updated 05/19/25 @ 21:12 by RAGINI BrowneMARIAMA) Asthma Diabetes mellitus High blood pressure High cholesterol Surgical History (Updated 05/19/25 @ 21:16 by KATHARINA Browne) H/O colonoscopy Social History Current occupational status: disabled Current occupation: rt hand Review of Systems Const Denies weight gain and Denies weight loss ENT Reports no additional complaints, Denies dysphagia and Denies odynophagia Card Reports no additional complaints Resp Reports no additional complaints GI Denies abdominal pain, Denies belching, Denies melena, Reports bloating, Denies change in bowel habits, Denies dysphagia, Denies excessive flatus, Denies dyspepsia, Reports heartburn, Denies diarrhea, Denies loose stools, Denies nausea, Denies odynophagia and Denies vomiting Musc Reports no additional complaints Neuro Reports no additional complaints Psych Reports no additional complaints Endo Reports no additional complaints Physical Exam Vital Signs: Last Vital Signs Pulse 64 05/17/25 11:39 BP 144/86 H 05/17/25 11:39 Pulse Ox 99 05/17/25 11:39 Oxygen Delivery Method Room Air 05/17/25 11:39 BMI result Body Mass Index 30.4 Const General: healthy appearing, no acute distress and well developed Nutritional Appearance: well nourished and obese Orientation/consciousness: patient oriented x3 Resp Effort & Inspection: normal respiratory effort, able to speak in complete sentences, no tracheal deviation and symmetric chest movement Auscultation: clear to auscultation bilaterally Cardio Rate: regular rate GI Inspection: Yes normal to inspection, No distended and Yes obesity Palpation (GI): Soft to palpation, not firm, nontender and No hepatosplenomegaly present Auscultation: normal bowel sounds General: Yes no CVA tenderness Back/Spine/Pelvis Back: no CVA tenderness Skin General skin exam: elasticity normal, turgor normal and dry skin Neuro General: patient oriented x3 Psych Appearance: grossly normal Mental Status: mental status grossly normal Assessment & Plan Assessment & Plan (1) Screen for colon cancer: Code(s): Z12.11 - Encounter for screening for malignant neoplasm of colon (2) Positive colorectal cancer screening using Cologuard test: Code(s): R19.5 - Other fecal abnormalities (3) GERD (gastroesophageal reflux disease): Code(s): K21.9 - Gastro-esophageal reflux disease without esophagitis Qualifiers: Esophagitis presence: esophagitis presence not specified Qualified Code(s): K21.9 - Gastro-esophageal reflux disease without esophagitis (4) Postprandial epigastric pain: Code(s): R10.13 - Epigastric pain (5) Postprandial diarrhea: Code(s): K52.9 - Noninfective gastroenteritis and colitis, unspecified (6) H/O colonoscopy: Code(s): Z98.890 - Other specified postprocedural states Plan Patient denies any cardiac or respiratory symptoms.? Patient reports occasional acid reflux. She will be started on pantoprazole. Patient will be sent for upper endoscopy to rule out gastritis, esophagitis, duodenitis, H pylori, Khan's. Denies any issues with anesthesia in the past.? Denies any history of sleep apnea.? No history infectious diseases in the past or present.? Not on any anticoagulation therapy.? No family history of colon cancer.? Patient denies melena, hematochezia, unintentional weight loss or ribbon like stools.? Patient is on Trulicity, nurse to call patient to remind her to hold 1 week before going for procedure. Discussed at length the pre-procedure,? prep, diet & medications as well as what to expect prior, during and after the procedure.?? Stressed the importance of good bowel prep.? Recommended the use of Vaseline or Calmoseptine OTC & baby wipes with bowel movements to promote comfort.? ?Patient verbalizes understanding and agrees to plan of care.? She was given the opportunity to ask questions and all questions answered.? We will see her after the procedure.? Orders: Referrals GI Procedure Notification Z12.11 - Encounter for screening for malignant neoplasm of colon Medications: New pantoprazole take one tablet half an hour before breakfast 40 mg PO DAILY 30 tabs 3RF K21.9 - Gastro-esophageal reflux disease without esophagitis bisacodyl (Dulcolax (bisacodyl)) take 4 tabs at noon the day before your colonoscopy 20 mg (4 x 5 mg) PO ONCE 4 tabs 0RF constipation 1 day Z12.11 - Encounter for screening for malignant neoplasm of colon polyethylene glycol 3350 (Miralax) As directed by gastroenterology department at [facility] 238 grams PO ONCE 238 grams 0RF Z12.11 - Encounter for screening for malignant neoplasm of colon Coding Level of Care Code New Pt Level 4 (08617) Diagnoses Screen for colon cancer Z12.11 Positive colorectal cancer screening using Cologuard test R19.5 Gastroesophageal reflux disease, unspecified whether esophagitis present K21.9 Esophagitis presence: esophagitis presence not specified Postprandial epigastric pain R10.13 Postprandial diarrhea K52.9 H/O colonoscopy Z98.890 Time Spent (min) 50 Comment 35 minute spent with patient and additional 10 minutes spent reviewing her records
[2025-05-17 11:39] VITALS: BP 144/86; PULSE 64; O2SAT 99; BMI 30.4
--- OUTSIDE RECORDS SUMMARY | 2025-05-17 14:08 | XMS_ITS | Encounter Summary ---
Author Organization [employer] Address [address] [facility] [address] [place] [address] Care Team Providers Care Manager Technology Name Role Phone Patricia Asher MD Primary Care Provider [phone] Zachary Garcia PharmD Unavailable [phone] Encounter Details Date Type Department Care Team (Latest Contact Info) Description 09/08/2018 Abstract [facility] CONVERSIONS Dental, Provider, DDS Social History [...] as of this encounter Plan of Treatment Not on file documented as of this encounter Visit Diagnoses Not on filedocumented in this encounter Care Teams Manager Technology Relationship Specialty Start Date End Date Patricia Asher MD [address] [place] [address] PCP - General Family Medicine 05/05/13 Zachary [place], PharmD [address] [place], [place] [phone] Pharmacist Internal Medicine 12/24/22 documented as of this encounter
--- OUTSIDE RECORDS SUMMARY | 2025-05-17 14:08 | XMS_ITS | Encounter Summary ---
Author Organization [email or web address] Address [address] [facility] [address] [place] [address] Care Team Providers Care Delivery Representative Name Role Phone Patricia Asher MD Primary Care Provider [phone] Zachary Garcia PharmD Unavailable [phone] Reason for Visit * Reason Onset Date Comments Appointment Request 12/16/2024 Encounter Details Date Type Department Care Team ([facility] st Contact Info) Description 12/16/2024 Telephone [facility] [address] [place], [place] [phone] Patricia Asher MD [address] [place], [place] [phone] Appointment Request Social History Tobacco Use Types [...] encounter Miscellaneous Notes * Telephone Encounter - Davion Rhodes - 12/16/2024 9:06 AM EDT Tc from pt requesting to schedule F/u Recall with PCP. Contact pt at [phone] documented in this encounter Plan of Treatment Not on file documented as of this encounter Goals Goal Patient Goal Type Associated Problems Recent Progress Patient-Stated? Author Blood Pressure < 140/90 Blood Pressure 130/82(2024 9:22 AM EDT) No Zachary [place], PharmD Hemoglobin A1c < 7 Result Component 6.6( 9:41 AM EDT) No Zachary [place], PharmD documented as of this encounter Visit Diagnoses Not on filedocumented in this encounter Additional Health Concerns Assessment Noted Time PHQ-9 Depression Total Score: 0 12/23/19 24 9:11 AM EDT documented as of this encounter Care Teams Delivery Representative Relationship Specialty Start Date End Date Patricia Asher MD [address] [place] [phone] PCP - General Family Medicine 05/05/13 Zachary [place], PharmD [address] [place] [phone] Pharmacist Internal Medicine 12/24/22 documented as of this encounter
--- OUTSIDE RECORDS SUMMARY | 2025-05-17 14:08 | XMS_ITS | Encounter Summary ---
Author Organization [employer] Address [address] [facility] [address] [place] [address] Care Team Providers Care Teletypewriter Installer Name Role Phone Patricia Asher MD Primary Care Provider [phone] Zachary Garcia PharmD Unavailable [phone] Reason for Visit * Reason Comments Med Refill Encounter Details Date Type Department Care Team (Late st Contact Info) Description 02/20/2025 Refill [facility] [address] [place] [address] Loco Mojica MD [address] [place] [address] Moderate persistent asthma without complication Social History Tobacco Use Types Packs/Day Years [...] Pressure 130/82(2024 9:22 AM EDT) No Zachary Garcia PharmD Hemoglobin A1c < 7 Result Component 6.6( 9:41 AM EDT) No Zachary Garcia PharmD documented as of this encounter Visit Diagnoses Diagnosis Moderate persistent asthma without complication documented in this encounter Additional Health Concerns Assessment Noted Time PHQ-9 Depression Total Score: 0 01/22/20 25 9:39 AM EDT documented as of this encounter Care Teams Teletypewriter Installer Relationship Specialty Start Date End Date Patricia Asher MD [address] [place] [address] PCP - General Family Medicine 05/05/13 Zachary Garcia PharmD [address] [place] [address] Pharmacist Internal Medicine 12/24/22 documented as of this encounter
--- OUTSIDE RECORDS SUMMARY | 2025-05-17 14:08 | XMS_ITS | Encounter Summary ---
Author Organization [employer] Address [address] [facility] [address] [place] [address] Care Team Providers Care Branch Credit Counselor Name Role Phone Patricia Asher MD Primary Care Provider [phone] Zachary Garcia PharmD Unavailable [phone] Reason for Visit * Reason Comments Med Refill Encounter Details Date Type Department Care Team ([facility] st Contact Info) Description 09/05/2023 Refill [facility] MED[facility]INE [address] [place], [place] [phone] Patricia Asher MD [address] [place], [place] [phone] Social History Tobacco Use Types Packs/Day Years Used Date Smoking Tobacco: Never Passive Smoke Exposure: Never Smokeless Tobacco: Never Housing Stability Answer Date Recorded What is your housing situation today? I have shermanmassimo guerrier 06/10/[address] you [...] on filedocumented in this encounter Care Teams Branch Credit Counselor Relationship Specialty Start Date End Date Patricia Asher MD [address] [place] [address] PCP - General Family Medicine 05/05/13 Zachary Garcia PharmD [address] [place] [address] Pharmacist Internal Medicine 12/24/22 documented as of this encounter
--- OUTSIDE RECORDS SUMMARY | 2025-05-17 14:08 | XMS_ITS | Encounter Summary ---
Author Organization [employer] Address [address] [facility] [address] [place] [address] Care Team Providers Care Special Needs Caregiver Name Role Phone Patricia Asher MD Primary Care Provider [phone] Zachary Garcia PharmD Unavailable [phone] Encounter Details Date Type Department Care Team (Latest Contact Info) Description 09/11/2019 Abstract [facility] CONVERSIONS Dental, Provider, DDS Social [...] on filedocumented in this encounter Care Teams Special Needs Caregiver Relationship Specialty Start Date End Date Patricia Asher MD [address] [place] [address] PCP - General Family Medicine 05/05/13 Zachary [place], PharmD [address] [place], [place] [phone] Pharmacist Internal Medicine 12/24/22 documented as of this encounter
--- OUTSIDE RECORDS SUMMARY | 2025-05-17 14:08 | XMS_ITS | Clinical Summary ---
Author Organization [employer] Address [address] [facility] [address] [place] [address] Care Team Providers Care Tank Terminal Gauger Name Role Phone Patricia Asher MD Primary Care Provider [phone] Zachary Garcia PharmD Unavailable [phone] Allergies No known active allergies Medications * [...] for pain 150 g 2 3 Active glucose blood (FREESTYLE LITE) test stripIndications:T ype 2 diabetes mellitus without complication, without long-term current use of insulin ([facility]) Use to test blood sugar twice daily as directed 150 each 3 4 Active montelukast (Singulair) 10 MG tablet [...] 11 4 Active enalapril (Vasotec) 20 MG tabletIndications: Essential hypertension TAKE 1 TABLET BY MOUTH TWICE DAILY 180 tablet 3 4 Active atorvastatin (Lipitor) 40 MG tablet TAKE 1 TABLET BY MOUTH AT BEDTIME 90 tablet 3 4 Active metFORMIN (Glucophage) 1000 MG tablet TAKE 1 TABLET BY MOUTH TWICE DAILY IN THE MORNING AND IN THE EVENING WITH MEALS 180 tablet 3 4 Active budesonide-formote rol (Symbicort) 80-4.5 MCG/ACT inhaler Administer 2 puffs twice a day. May use additional 1-2 puffs every 4 hours as needed for wheezing. Max 12 puffs per day. Rinse mouth with water after use to reduce aftertaste and incidence of candidiasis. 1 each 11 5 Active TRUEplus Lancets 33G miscIndications:Ty pe 2 diabetes mellitus without complication, without long-term current use of insulin ([facility]) Use to test blood sugar twice daily as directed 200 each 2 5 Active meloxicam (Mobic) 7.5 MG tabletIndications: Primary osteoarthritis of both knees TAKE 1 TABLET BY MOUTH ONE OR TWO TIMES DAILY NEEDED 60 tablet 5 5 Active albuterol (Ventolin HFA) 108 (90 Base) MCG/ACT inhalerIndications :Moderate persistent asthma without complication Inhale 2 puffs every 4 (four) hours if needed for shortness of breath or wheezing. 18 g 1 5 Active Spacer/Aero-Holdin g Chambers (OptiChamber Olesya) misc 1 each every 4 (four) hours if needed (asthma). 1 each 5 Active Aspirin Low Dose 81 MG EC tabletIndications: Type 2 diabetes mellitus without complication, without long-term current use of insulin ([facility]) TAKE 1 TABLET BY MOUTH EVERY DAY 90 tablet 3 5 Active acetaminophen (Tylenol 8 Hour) 650 MG ER tabletIndications: Acute pain of left shoulder Take 1 or 2 tablets every 8 hours as needed for pain, no more than 6 tablets per day 60 tablet 1 5 Active Active Problems Problem Noted Date Diagnosed Date Chronic left shoulder pain 05/05/2025 Assessment & Plan (05/05/2025 4:22 PM EDT): - X-ray in February 2025 shows mild degenerative change in AC joint - exam suggests rotator cuff tendinopathy and/or calcific tendinitis - refer to orthopedist because patient is interested in shoulder joint injection Positive colorectal cancer screening using Colog uard [...] Premature ventricular beats 09/09/2022 Assessment & Plan (05/05/2025 4:18 PM EDT): - Holter monitor on 10/30/21 showed 14% of premature ventricular complex - Continue metoprolol succinate 12.5 mg daily due to HTN Assessment & Plan (08/15/2023 10:00 AM EST): [...] Plan (08/15/2023 9:57 AM EST): - orthopedist: [facility] [place] - continue conservative management and schedule carpal tunnel release surgery when she is ready - activity modification - use wrist brace for night time Assessment & Plan (03/03/2023 5:06 PM EDT): - orthopedist: [facility] [place] - continue conservative management and schedule carpal tunnel release surgery when she is ready - activity modification - use wrist brace for night time Assessment & Plan (12/10/2022 11:45 AM EDT): - orthopedist: [facility] – [place] - continue conservative management and schedule carpal tunnel release surgery when she is ready - activity modification - use wrist brace for night time Assessment & Plan (09/09/2022 11:05 AM EST): - orthopedist: [facility] – [place] - continue conservative management and schedule carpal [...] (09/09/2022 11:21 AM EST): - Evaluated by android ui developer. No inflammatory arthritis or autoimmune disorder. Vascular insufficiency 09/04/2022 Assessment & Plan (05/05/2025 4:18 PM EDT): - Following with [facility] provider, last seen in Mar 2025 - Currently managed by conservative management. - Continue compression stocking, low sodium intake, and leg elevation. - 08/20/19 Venous study right CFV, GSV, SFJ valve, SSV, and popliteal insufficiency; left CFV, SGV, SFJ valve, popliteal, and SSV insufficiency; L > R Assessment & Plan (07/01/2024 9:33 AM EST): [...] steroid injection in R knee. Referred to paint mixer and received injection. Seen and evalauted by android ui developer. No inflammatory arthritis. Recommended to continue judicious use of gabapentin. Discussed about working on lifestyle modifications. Treatment Hx: meloxicam 7.5 mg once or twice daily, pt is no longer taking it Continue APAP prn Continue Lidoderm patch and diclofenac gel Assessment & Plan (08/15/2023 10:02 AM EST): Seen by ortho on 01/06/2018 and Received steroid injection in R knee. Referred to paint mixer and received injection. Seen and evalauted by android ui developer. No inflammatory arthritis. Recommended to continue judicious use of gabapentin. Discussed about working on lifestyle modifications. Treatment Hx: meloxicam 7.5 mg once or twice daily, pt is no longer taking it Continue APAP prn Add Lidoderm patch and diclofenac gel Assessment & Plan (03/03/2023 5:08 PM EDT): Seen by ortho on 01/06/2018 and Received steroid injection in R knee. Referred to paint mixer and received injection. Seen and evalauted by android ui developer. No inflammatory arthritis. Recommended to continue judicious use of gabapentin. Discussed about working on lifestyle modifications. Treatment Hx: meloxicam 7.5 mg once or twice daily, pt is no longer taking it Continue APAP prn Add Lidoderm patch and diclofenac gel Assessment & Plan (09/09/2022 11:20 AM EST): Seen by ortho on 01/06/2018 and Received steroid injection in R knee. Referred to paint mixer and received injection. Seen and evalauted by android ui developer. No inflammatory arthritis. Recommended to continue judicious use of gabapentin. Discussed about working on lifestyle modifications. Rx meloxicam 7.5 mg once or twice daily for moderate to severe pain Varicose veins of lower extremity 08/13/2016 Assessment & Plan (05/05/2025 4:17 PM EDT): - Following with [facility] provider, last seen in Mar 2025 - CEAP Class III. - Currently managed by conservative management. - Continue compression stocking, low sodium intake, and leg elevation. - 08/20/19 Venous study right CFV, GSV, SFJ valve, SSV, and popliteal insufficiency; left CFV, SGV, SFJ valve, popliteal, and SSV insufficiency; L > R Assessment & Plan (07/01/2024 9:33 AM EST): [...] by Dr. Forrester on 06/15/19. Following with [facility] provider, last seen in Apr 2022 - CEAP Class III. - Currently managed by conservative management. - Continue compression stocking, low sodium intake, and leg elevation. - 08/20/19 Venous study right CFV, GSV, SFJ valve, SSV, and popliteal insufficiency; left CFV, SGV, SFJ valve, popliteal, and SSV insufficiency; L > R Type 2 diabetes mellitus 01/10/2016 Assessment & Plan (04/29/2025 10:13 PM EDT): - A1C 6.6% on 04/28/2025 - Continue working on lifestyle modifications - Continue Prandin 1 mg with breakfast, 2 mg with lunch, and 1 mg with dinner - Continue Metfomrin 1000mg BID. - Continue dulaglutide (Trulicity) to 3.0 mg weekly - Treatment Hx: Jardiance 10 mg daily - discontinued due to symptom. Prandin was discontinued. - Last eye exam: 03/26/2025. [facility] eye care. 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 No obvious abnormality, no tenderness or swelling on her right toes - Last microalbumin test: Sep 2024 No microalbuminuria. - Most recent lab: 09/30/2024 TRIG 93; CHOL 114; LDL 46; HDL 50 - Last dental exam: Assessment & Plan (01/21/2025 10:09 AM EDT): [...] exam: Essential hypertension 07/19/2015 Assessment & Plan (04/28/2025 6:05 AM EDT): - Goal BP < 130/80 per ACC/AHA guideline - BP at goal today - Co-managed with disability hearing officer and pharmacist - Treatment Hx: HCTZ was discontinued because she was diagnosed with gout / mild hyperuricemia and hypokalemia - Continue working on lifestyle modifications - Continue Enalapril 20 mg bid - Continue metoprolol succinate 25 mg daily for frequent PVC. - Follow up in 3 mo, sooner if any problem arises Assessment & Plan (01/21/2025 10:10 AM EDT): - Goal BP < 140/90 er JNC-8 and < 130/80 per ACC/AHA guideline - BP at goal today - Co-managed with disability hearing officer and pharmacist - Treatment Hx: HCTZ was [...] in office was better. - Co-managed with disability hearing officer and pharmacist - Treatment Hx: HCTZ was [...] in office was better. - Co-managed with disability hearing officer and pharmacist - Treatment Hx: HCTZ was [...] BP at goal today - Co-managed with disability hearing officer and pharmacist - Treatment Hx: HCTZ was [...] fall precaution Dyslipidemia 06/03/2013 Assessment & Plan (04/29/2025 10:12 PM EDT): - Current medication: atorvastatin 40 mg qhs - Most recent lab: 09/30/2024 TRIG 93; CHOL 114; LDL 46; HDL 50 - High-intensity statin therapy is indicated; consider increasing after next lab - Continue working on lifestyle modifications Assessment & Plan (01/21/2025 10:08 AM EDT): [...] Encounters Date Type Department Care Team Description 05/07/2025 Outside Procedure [facility] [address] [place] [address] Hank Cedeñon, OD Presbyopia of both eyes (Primary Dx) 05/05/2025 11:00 AM EDT Office Visit [facility] [address] [place] [address] Davidson Yuliana, OD Hyperopia of both eyes (Primary Dx) 05/05/2025 Travel 04/28/2025 9:30 AM EDT Office Visit [facility] [address] [place] [address] Patricia Asher MD Essential hypertension (Primary Dx); Dyslipidemia; Type 2 diabetes mellitus without complication, without long-term current use of insulin (CMS/HCC); Premature ventricular beats; Vascular insufficiency; Varicose veins of both lower extremities, unspecified whether complicated; Chronic left shoulder pain 04/28/2025 Travel 04/27/2025 Telephone [facility] [address] [place] [address] Patricia Asher MD CHART PREP 04/02/2025 Results Follow-Up [facility] [address] [place] [address] Armani Nunn ANP XR Shoulder 2+ Views Left, Creatine Kinase, Total, Basic Metabolic Panel 03/26/2025 10:30 AM EDT Office Visit [facility] [address] [place] [address] Davidson, Yuliana, OD 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 associated with type 2 diabetes mellitus ([facility]) (Primary Dx); Nuclear sclerotic cataract of both eyes; Myelinated optic nerve fiber layer, left; Presbyopia of both eyes 03/26/2025 Travel 03/19/2025 9:30 AM EDT Office Visit [facility] [address] [place] [address] Armani Nunn ANP Acute pain of left shoulder (Primary Dx); Myalgia 03/19/2025 Travel 02/25/2025 Travel 02/25/2025 Refill [facility] [address] [place] [address] Zachary Garcia, RomuloD Type 2 diabetes mellitus without complication, without long-term current use of insulin (CMS/HCC) 02/20/2025 Refill [facility] [address] [place] [address] Loco Mojica MD Moderate persistent asthma without complication from Last 3 Months Immunizations Immunization Administration Dates Next Due Hep B, adult 01/10/2016,10/18/2015,04/14/2015 Influenza Injectable Quadriv alant Preservative Free IIV4 MDCK 06/24/2023,06/13/2020 Influenza injectable quadriv alent IIV4 with preservative 05/14/2019,06/12/2018,08/21/2017,05/23 Influenza injectable quadriv alent preservative free 07/23/2022,05/30/2021 Influenza, IIV3, injectable 05/27/2014,10/24/201 1 Influenza, Split (incl. ray fied surface antigen) 06/03/2013,06/17/2012 Influenza, seasonal, injecta ble, preservative free 07/01/2024 Moderna Covid-19 Vaccine 12+ 01/16/2024( Deferred: Patient decision - Vaccine Fatigue) Moderna Covid-19 Vaccine 6+ Bivalent 09/06/2022 Pfizer Covid-19 Vaccine 12+ 09/12/2021,,02/15/2021 Pneumococcal Conjugate PCV 20 02/28/2023 Pneumococcal Polysaccharide [...] Sign Reading Time Taken Comments Blood Pressure 130/82 04/28/2025 9:22 AM EDT Pulse 72 04/28/2025 9:22 AM EDT Temperature 37.2 C (98.9 F) 04/28/2025 9:22 AM EDT Respiratory Rate 17 04/28/2025 9:22 AM EDT Oxygen Saturation 99% 04/28/2025 9:22 AM EDT Inhaled Oxygen Concentration - - Weight 79.7 kg (175 lb 9.6 oz) 04/28/2025 9:22 A M EDT Height 152.4 cm (5') 04/28/2025 9:22 AM EDT Body Mass Index 34.29 04/28/2025 9:22 AM EDT Plan of Treatment Health Maintenance Due Date Last Done Comments CT Colonography 1960 FIT 1960 Sigmoidoscopy 1960 RSV Patients and Patients Aged 60 years or older (1 - Risk 60-74 years 1-dose series) 2022 Colonoscopy 02/17/2025 02/17/2015 COVID-19 Vaccine ( season) 2025 09/06/2022, 09/12/2021, 03/08/2021, Additional history exists Influenza Vaccine (#1) 2025 , 06/24/2023, 07/23/2022, Additional history exists FOBT 09/18/2025 09/18/2024 Diabetes: Urine Protein Screening 09/30/2025 09/30/2024, 08/21/2023, 02/15/2021, Additional history exists Lipid Panel 09/30/2025 09/30/2024, 07/27, 02/15/2021 Diabetes: Foot Exam 10/05/2025 10/05/2024, 07/01/2024, 07/01/2024, Additional history exists Diabetes: Hemoglobin A1C 10/26/2025 025, 01/21/2025, 10/05/2024, Additional history exists Mammogram 11/20/2025 11/21/2023, 10/25, 11/17/2021, Additional history exists Depression Screening 01/21/2026 01/21/2025, 01/22/20 25 SDOH Screening 01/21/2026 01/21/2025 Eye Exam 03/26/2026 03/26/2025, 08/0 08/2024, 03/26/2025, Additional history exists Alcohol/Substance Use Screening 04/28/2026 04/28/2025 Disability Screening 04/28/2026 04/28/2025 Tobacco Screening 04/28/2026 04/28/2025 Colorectal Cancer Screening 09/18/2027 FIT DNA/Cologuard 09/18/2027 [...] 9:41 AM EDT) No Zachary Garcia PharmD Procedures Procedure Name Priority Date/Time Associated Diagnosis Comments POCT GLUCOSE Routine 04/28/2025 9:42 AM EDT Type 2 diabetes mellitus without complication, without long-term current use of insulin ([facility]) POCT GLYCOSYLATED HEMOGLOBIN (HGB A1C) Routine 04/28/2025 9:41 AM EDT Type 2 diabetes mellitus without complication, without long-term current use of insulin ([facility]) BASIC METABOLIC PANEL Routine 03/23/2025 10:46 AM EDT Myalgia CREATINE KINASE, TOTAL Routine 03/23/2025 10:46 AM EDT Myalgia XR SHOULDER 2+ VIEWS LEFT Routine 03/23/2025 10:21 AM EDT Acute pain of left shoulder ALBUMIN, RANDOM URINE W/CREATININE Routine 09/30/2024 9:33 AM EST Type 2 diabetes mellitus without complication, without long-term current use of insulin ([facility]) Essential hypertension LIPID PANEL WITH REFLEX TO DIRECT LDL Routine 09/30/2024 9:33 AM EST Type 2 diabetes mellitus without complication, without long-term current use of insulin ([facility]) LAB COLOGUARD COLON CANCER SCREEN Routine 09/18/2024 [...] Recently Relevant to Health Maintenance Results * POCT glucose manually resulted (04/28/2025 9:42 AM EDT) Glucose Blood, POC 177 60 - 200 mg/dL QC Media Lot # [id number] Lot# Expiration Date [id number] Blood Capillary blood specimen / Unknown 04/28/2025 9:42 AM EDT us Patricia Asher MD POINT OF CARE TEST ENTER/EDIT OR DERABLES Final Result * (ABNORMAL) POCT glycosylated hemoglobin (Hgb A1c) (04/28/2025 9:41 AM EDT) Hemoglobin A1C 6.6(A) 4.0 - 5.7 % QC Media Lot # [id number] Lot# Expiration Date , Blood Capillary blood specimen / Unknown 04/28/2025 9:41 AM EDT us Patricia Asher MD POINT OF CARE TEST ENTER/EDIT OR DERABLES Final Result * Creatine Kinase, Total (03/23/2025 10:46 AM EDT) Creatine Kinase Total 94 26 - 140 U/L [facility] Blood Venous blood specimen / Unknown 03/23/2025 10:46 AM EDT 03/23/2025 1:22 PM EDT Armani Nunn ANP LAB BLOOD ORDERABLES Final Resul t Performing Organization Address [facility] de Phone Number [facility] [address] [place] [address] [phone] * (ABNORMAL) Basic Metabolic Panel (03/23/2025 10:46 AM EDT) Sodium 143 135 - 145 mmol/L [facility] Potassium 4.1 3.3 - 5.1 mmol/L [facility] Chloride 108 96 - 108 mmol/L [facility] Carbon Dioxide 25 22 - 29 mmol/L [facility] Anion Gap 14 12 - 20 [facility] Urea Nitrogen (BUN) 13 9 - 16 mg/dL [facility] Creatinine, Serum 0.84 0.5 - 1.4 mg/dL [facility] Estimated Glomerular Filt Rate >60 [facility] Comment:Chronic Kidney Disea se: Estimated GFR < 60 mL/min/[id number] Kidney Disease: Estimated GFR < 15 mL/min/1.73m2 Glucose 166(H) 60 - 115 mg/dL [facility] Calcium 9.1 8.4 - 10.2 mg/dL [facility] Blood Venous blood specimen / Unknown 03/23/2025 10:46 AM EDT 03/23/2025 1:22 PM EDT Armani Nunn ANP LAB BLOOD ORDERABLES Final Resul t Performing Organization Address [facility] Co de Phone Number [facility] [address] [place] [address] [phone] * XR Shoulder 2+ Views Left (03/23/2025 10:21 AM EDT) Anatomical Region Laterality Modality Upper Extremities, Shoulder Left Radi ographic Imaging 03/23/2025 10:2 1 AM EDT Narrative 03/23/2025 11:20 AM EDT [address] [address] XRay Report Signed Patient: Miryam Moura I MR#: [id number] : 1960 Acct:[id number] Age/Sex: 65 / F ADM Date: 03/23/25 Loc: [facility] Attending Dr: Armani Nunn NP Ordering Physician: ARMANI NUNN NP Date of Service: 03/23/25 Procedure(s): XR shoulder LT min 2V Accession Number(s): [id number] cc: ARMANI NUNN NP EXAMINATION: XR SHOULDER [...] 03/23/25 1117 DD/ 1021 TD/TT: 03/23/25 1025 Rock Wool Insulator: Procedure Note Donotuseinterpreter, Image - 03/23/[address] [address] XRay Report Signed Patient: Miryam Moura IMR#: [id number] : 1960cct:[id number] Age/Sex: 65 / FADM Date: 03/23/25 Loc: [facility] Attending Dr: Armani Nunn DIP DYER Ordering Physician: ARMANI NUNN NP Date of Service: 03/23/25 Procedure(s): XR shoulder LT min 2V Accession Number(s): [id number] cc: ARMANI NUNN NP EXAMINATION: XR SHOULDER [...] Joon Suazo MD 03/23/2025 11:17 AM EDT RP Dictated By: Joon Suazo MD Signed By: <Electronically signed by Joon Suazo MD in OV> 03/23/25 1117 DD/ 1021 TD/TT: 03/23/25 1025 Rock [employer] Insulator: Armani HERNANDEZ IMBritt XR PROCEDURES Final Result * Lipid Panel with Reflex to Direct LDL (09/30/2024 9:33 AM EST) Triglycerides 93 <150 mg/dL [facility] Comment:Desirable Triglyceri de: less than 150 mg/dLBorderline High Triglyceride 150-199 mg/dLHigh Triglyceride: 200-499 mg/dLVery High Triglyceride: greater than or equal to 5OO mg/dL Cholesterol 114 <200 mg/dL [facility] Comment:Desirable Cholestero l: less than 200 mg/dLBorderline High Cholesterol: 200-239 mg/dLHigh Cholesterol: greater than 239 mg/dL LDL Cholesterol Calculated 46 <100 mg/dL [facility] Comment:Desirable LDL: less than 100 mg/dLNear Optimal/Above Optimal LDL: 110- 129 mg/dLBorderline High LDL: 130-159 mg/dLHigh LDL: 160-189 mg/dLVery High LDL: greater than or equal to 190 mg/dL HDL Cholesterol 50 >40 mg/dL [facility] Comment:Desirable HDL: great er than 40 mg/dL Note: This HDL assay may give artificially low results in patients with liver disease. Blood 09/30/2024 9:33 AM EST 09/30/2024 10:51 AM EST Patricia Asher MD LAB BLOOD ORDERABLES Final Resul t Performing Organization Address [facility] de Phone Number [facility] [address] [place] [phone] * Albumin, Random Urine W/Creatinine (09/30/2024 9:33 AM EST) Creatinine, Urine 156.56 mg/dL [facility] Microalbumin Urine 28.0 mg/L [facility] Microalbum Creatinine Ratio Ur 17.8 <30 ug/mg cr [facility] Comment:Albumin/Creatinine R atio Reference Ranges: Normal: < 30 ug/mg creatinine Microalbuminuria: 30 - 300 ug/mg creatinineClinical Albuminuria: > 300 ug/mg creatinine Urine 09/30/2024 9:33 AM EST 09/30/2024 10:56 AM EST Patricia Asher MD LAB URINE ORDERABLES Final Resul t Performing Organization Address [facility] de Phone Number [facility] [address] [place] [phone] * (ABNORMAL) Cologuard?? colon cancer screening (09/18/2024 8:47 AM EST) Cologuard Result Positive( A) Negative 09/24/2024 9:46 AM EST Le[employer]ra [facility] (CLIA #:[id number]) Comment: POSITIVE TEST RESULT. A positive Cologuard [...] (Michelle Peralta al, N Engl J Med 2014;370(14):3156-4596.) Cologuard may produce a false negative or false positive result (no colorectal cancer or precancerous polyp present at colonoscopy follow up). A negative Cologuard test result does not guarantee the absence of CRC or advanced adenoma (pre-cancer). The current Cologuard screening interval is every 3 years. ([place] [employer] and U.S. Multi-Society Task Force). Cologuard performance data in a 10,000 patient pivotal study using colonoscopy as the reference method can be accessed at the following location: [email or web address]. Additional description of the Cologuard test process, warnings and precautions can be found at [email or web address] [email or web address]. Stool specimen (specimen) Rectal contents / Unknown 09/18/2024 8:47 AM EST 09/19/2024 7:23 AM EST Patricia Asher MD LAB MOLECULAR DIAGNOSTICS ORDERA BLES Final Result [facility] (CLIA #:[id number]) [place] [address], * HPV mRNA E6/E7 w/Reflex to HPV Genotypes 16, 18/45 (07/01/2024 12:00 AM EST) [facility] Provider LAB CYTOLOGY ORDERABLES F inal Result [facility] [address] [place] [phone] * Pap Smear (07/01/2024 12:00 AM EST) Swab Cervix uteri structure / Unknown 07/01/2024 07/02/2024 8:45 AM EST Nelly [facility] - 07/06/2024 8:28 AM EST ----- ------- Name: Damien MillerMiryam Victor Age/Sex: 64/F : 1960 Unit#: [id number] Attend Dr: Re07/01/24 Status: PRE REF Location: .LN Disch: ----- ------- SPEC : [id number] RECD: 07/02/24 STATUS: IZZY ORTEGA NUM: [id number] JATIN: 07/01/24-[address]: Patricia Asher MD ENTERED: 07/02/24 SP TYPE: Pap Smr OT DR: ORDERED: Pap Smear Interpretation Satisfactory for evaluation. Negative for intraepithelial lesion or malignancy. HPV High Risk: Negative HPV Genotyping 16: Negative HPV Genotyping 18: Negative Clinical Information LMP: Postmenopausal Previous PAP test: 2019, Abnormal Material Received ThinPrep-Cervical ----- ------- Signed (signature on file) Nikolas Dobbsorion CT (ASCP) 07/06/24 0828 ----- ------- END OF REPORT us Patricia Asher MD LAB CYTOLOGY ORDERABLES Final Re sult [facility] [address] [place] [phone] * BI Mammogram Screening Tomosynthesis Bilateral (11/21/2023 12:05 PM EDT) Anatomical Region Laterality Modality Breast Bilateral Mammography 11/21/2023 12:0 5 PM EDT Narrative 12/07/2023 10:20 PM EDT [facility] [address] [place] [address] Mammography Report Signed Patient: Miryam Moura I MR#: [id number] : 1960 Acct:[id number] Age/Sex: 63 / F ADM Date: 11/21/23 Loc: [facility]A Attending Dr: Patricia Asher MD Ordering Physician: Patricia Asher MD Results: 1Negative Date of Service: 11/21/23 Follow Up: 1 Year From Orig inal Mammogram Procedure(s): MM tomosynthesis screening BI Accession Number(s): [id number] cc: Patricia Asher MD EXAMINATION: MM SCREENING [...] in OV> 12/07/23 2217 DD/ 1205 TD/TT: Rock Wool Insulator: Procedure Note Donotuseinterpreter, Image - 12[facility]07/[facility] [address] [place] [address] Mammography Report Signed Patient: Miryam Moura IMR#: [id number] : [id number] Age/Sex: 63 / FADM Date: 11/21/23 Loc: [facility] Attending Dr: Patricia Asher MD Ordering Physician: Patricia Asher MDResults: 1Negative Date of Service: 11/21/23Follow Up: 1 Year From [facility] Mammogram Procedure(s): MM tomosynthesis screening BI Accession Number(s): [id number] cc: Patricia Asher MD EXAMINATION: MM SCREENING [...] by Tori Oh MD in OV> 12/07/23 221 DD/ 1205 TD/TT: Rock Wool Insulator: Patricia Asher MD IMG BI PROCEDURES Final Result * Colonoscopy (02/17/2015) Colonoscopy Normal Normal 02/17/2015 Whitley Kerr [facility] MAINTENA[facility]CE Edited Result - Final from Last 3 Months or Most Recently Relevant to Health Maintenance Insurance [facility] C3 Care Teams Tank Terminal Gauger Relationship Specialty Start Date End Date Patricia Asher MD [address] [place] [address] PCP - General Family Medicine 05/05/13 Zachary Garcia, PharmD [address] [place] [phone] Pharmacist Internal Medicine 12/24/22
--- OUTSIDE RECORDS SUMMARY | 2025-05-17 14:08 | XMS_ITS | Encounter Summary ---
Author Organization [employer] Address [address] [facility] 7t [place] [address] Care Team Providers Care Bakery Decorator Name Role Phone Patricia Asher MD Primary Care Provider [phone] Zachary Garcia PharmD Unavailable [phone] Encounter Details Date Type Department Care Team (Late st Contact Info) Description 12/21/2024 Orders Only [facility] MED [facility] PEDS [address] [place], [place] [phone] Olinda Valadez Social History Tobacco Use Types Packs/Day Years [...] 130/82(2024 9:22 AM EDT) No Zachary Garcia, Camilo Hemoglobin A1c < 7 Result Component 6.6( 9:41 AM EDT) No Zachary Garcia PharmD documented as of this encounter Procedures Procedure Name Priority Date/Time Associated Diagnosis Comments HPV MRNA E6/E7 REFLEX TO HPV 16, 18/45 Routine 07/01/2024 12:00 AM EST documented in this encounter Results * HPV mRNA E6/E7 w/Reflex to HPV Genotypes 16, 18/45 (07/01/2024 12:00 AM EST) us Historical Provider LAB CYTOLOGY ORDERABLES F inal Result [facility] [address] [place] [phone] documented in this encounter Visit Diagnoses Not on filedocumented in this encounter Additional Health Concerns Assessment Noted Time PHQ-9 Depression Total Score: 0 12/23/19 24 9:11 AM EDT documented as of this encounter Care Teams Bakery Decorator Relationship Specialty Start Date End Date Patricia Asher MD [address] [place] [phone] PCP - General Family Medicine 9/10/13 Zachary Garcia, PharmD [address] [place] [address] Pharmacist Internal Medicine 12/24/22 documented as of this encounter
== END 2025-05-17 12:06 | disposition home or self-care (01) ==
LOC: HO.HGI 11:28
PROVIDERS: PCP Family Medicine; Visit Provider Nurse Practitioner Family
DX: Z01.818 Encounter for other preprocedural examination (principal); Z12.11 Encounter for screening for malignant neoplasm of colon; R19.5 Other fecal abnormalities; K21.9 Gastro-esophageal reflux disease without esophagitis; R10.13 Epigastric pain; K52.9 Noninfective gastroenteritis and colitis, unspecified; Z98.890 Other specified postprocedural states
CPT/HCPCS: 99204

== ENCOUNTER → 2025-05-17 11:27 | Outpatient (BNVA) | payer MEDICAID, SELFPAY | PROVIDERS: PCP Family Medicine; Visit Provider Nurse Practitioner Family | DX: Z01.818 Encounter for other preprocedural examination (principal); K21.9 Gastro-esophageal reflux disease without esophagitis; R10.13 Epigastric pain; K52.9 Noninfective gastroenteritis and colitis, unspecified | CPT/HCPCS: 99212 ==

== ENCOUNTER 2025-05-25 08:11 | Day surgery (SDC) | payer MEDICAID, SELFPAY ==
--- OUTSIDE RECORDS SUMMARY | 2025-05-19 14:13 | XMS_ITS | Encounter Summary ---
Author Organization [employer] Address [address] [facility] [address]t [place] [address] Care Team Providers Care 3D Specialist Name Role Phone Patricia Asher MD Primary Care Provider [phone] Zachary aGrcia PharmD Unavailable [phone] Reason for Visit * Reason Onset Date Comments Appointment Request 12/16/2024 Encounter Details Date Type Department Care Team ([facility] st Contact Info) Description 12/16/2024 Telephone [facility] MEDICINE [address] [place], [place] [phone] Patricia Asher MD [address] [place], [place] [phone] Appointment Request Social History Tobacco Use Types [...] F/u Recall with PCP. Contact pt at [phone] documented in this encounter Plan of Treatment [...] documented as of this encounter Care Teams 3D Specialist Relationship Specialty Start Date End Date Patricia Asher MD [address] [place] [phone] PCP - General Family Medicine 05/05/13 Zachary Garcia, PharmD [address] [place] [phone] Pharmacist Internal Medicine 12/24/22 documented as of this encounter
--- OUTSIDE RECORDS SUMMARY | 2025-05-19 14:13 | XMS_ITS | Encounter Summary ---
Author Organization [employer] Address [address] [facility] 7t [place] [address] Care Team Providers Care Import/Export Agent Name Role Phone Patricia Asher MD Primary Care Provider [phone] Zachary Garcia PharmD Unavailable [phone] Reason for Visit * Reason Comments Med Refill Encounter Details Date Type Department Care Team (Late st Contact Info) Description 02/20/2025 Refill [facility] [address] [place] [address] Loco Mojica MD [address] [place] [address] Moderate persistent asthma without complication Social History [...] documented as of this encounter Care Teams Import/Export Agent Relationship Specialty Start Date End Date Patricia Asher MD [address] [place] [address] PCP - General Family Medicine 05/05/13 Zachary Garcia PharmD [address] [place] [address] Pharmacist Internal Medicine 12/24/22 documented as of this encounter
--- OUTSIDE RECORDS SUMMARY | 2025-05-19 14:13 | XMS_ITS | Encounter Summary ---
Author Organization [employer] Address [address] [facility] 7t [place] [address] Care Team Providers Care Training Facilitator Name Role Phone Patricia Asher MD Primary Care Provider Zachary Garcia PharmD Unavailable [phone] Encounter Details Date Type Department Care Team (Late st Contact Info) Description 12/21/2024 Orders Only [facility]ED[facility] [address] [place], [place] [phone] Olinda Valadez Social History Tobacco Use Types [...] Provider LAB CYTOLOGY ORDERABLES F inal Result [facility] [address] [place] [phone] documented in this encounter Visit Diagnoses Not on filedocumented in this encounter Additional Health Concerns Assessment Noted Time PHQ-9 Depression Total Score: 0 12/23/19 24 9:11 AM EDT documented as of this encounter Care Teams Training Facilitator Relationship Specialty Start Date End Date Patricia Asher MD [address] [place] [phone] PCP - General Family Medicine 9/10/13 Zachary Garcia, PharmD [address] [place] [address] Pharmacist Internal Medicine 12/24/22 documented as of this encounter
--- OUTSIDE RECORDS SUMMARY | 2025-05-19 14:13 | XMS_ITS | Encounter Summary ---
Author Organization [employer] Address [address] [facility] [address]t [place] [address] Care Team Providers Care Hand Method Lasting Machine Operator Name Role Phone Patricia Asher MD Primary Care Provider [phone] Zachary Garcia PharmD Unavailable [phone] Encounter Details Date Type Department Care Team (Latest Contact Info) Description 09/11/2019 Abstract [facility] CONVERSIONS Dental, Provider, DDS Social History Tobacco [...] on filedocumented in this encounter Care Teams Hand Method Lasting Machine Operator Relationship Specialty Start Date End Date Patricia Asher MD [address] [place] [address] PCP - General Family Medicine 05/05/13 Zacahry Garcia, PharmD [address] [place], [place] [phone] Pharmacist Internal Medicine 12/24/22 documented as of this encounter
--- OUTSIDE RECORDS SUMMARY | 2025-05-19 14:13 | XMS_ITS | Encounter Summary ---
Author Organization [employer] Address [address] [facility] 7t [place] [address] Care Team Providers Care Supervisor Lamp Shades Name Role Phone Patricia Asher MD Primary Care Provider [phone] Zachary Garcia PharmD Unavailable [phone] Reason for Visit * Reason Comments Med Refill Encounter Details Date Type Department Care Team ([facility] st Contact Info) Description 09/05/2023 Refill [facility] [address] [place], [place] [phone] Patricia Asher MD [address] [place], [place] [phone] Social History Tobacco Use Types Packs/Day Years [...] on filedocumented in this encounter Care Teams Supervisor Lamp Shades Relationship Specialty Start Date End Date Patricia Asher MD [address] [place] [address] PCP - General Family Medicine 05/05/13 Zachary Garcia PharmD [address] [place] [address] Pharmacist Internal Medicine 12/24/22 documented as of this encounter
--- OUTSIDE RECORDS SUMMARY | 2025-05-19 14:13 | XMS_ITS | Encounter Summary ---
Author Organization [employer] Address [address] [facility] [address] [place] [address] Care Team Providers Care Warehouse Puller Name Role Phone Patricia Asher MD Primary Care Provider [phone] Zachary Garcia PharmD Unavailable [phone] Reason for Visit * Reason Comments Med Refill Encounter Details Date Type Department Care Team ([facility] st Contact Info) Description 05/19/2025 Refill [facility] DIABETES/NUTRITION [address] [place] [address] Patricia Asher MD [address] [place] [address] Social History Tobacco Use Types Packs/Day Years [...] documented as of this encounter Care Teams Warehouse Puller Relationship Specialty Start Date End Date Patricia Asher MD [address] [place] [address] PCP - General Family Medicine 05/05/13 Zachary Garcia PharmD [address] [place] [address] Pharmacist Internal Medicine 12/24/22 documented as of this encounter
--- OUTSIDE RECORDS SUMMARY | 2025-05-19 14:13 | XMS_ITS | Clinical Summary ---
Author Organization [employer] Address [address] [facility] [address] [place] [address] Care Team Providers Care Lock Stitch Channeler Name Role Phone Patricia Asher MD Primary Care Provider [phone] Zachary Garcia PharmD Unavailable [phone] Allergies No known active allergies Medications * [...] complication, without long-term current use of insulin ([facility]) Use to test blood sugar twice daily [...] complication, without long-term current use of insulin ([facility]) Use to test blood sugar twice daily [...] complication, without long-term current use of insulin ([facility]) TAKE 1 TABLET BY MOUTH EVERY DAY [...] Plan (08/15/2023 9:57 AM EST): - [place] [facility] [place] continue conservative management and schedule carpal tunnel release surgery when she is ready - activity modification - use wrist brace for night time Assessment & Plan (03/03/2023 5:06 PM EDT): - [place]oped[place] [facility] [place] continue conservative management and schedule carpal tunnel release surgery when she is ready - activity modification - use wrist brace for night time Assessment & Plan (12/10/2022 11:45 AM EDT): - [place]opedist: [facility] [place] continue conservative management and schedule carpal tunnel release surgery when she is ready - activity modification - use wrist brace for night time Assessment & Plan (09/09/2022 11:05 AM EST): - [place]opedist: [facility] [place] continue conservative management and schedule carpal [...] (09/09/2022 11:21 AM EST): - Evaluated by tech writer. No inflammatory arthritis or autoimmune disorder. Vascular [...] steroid injection in R knee. Referred to stained glass painter and received injection. Seen and evalauted by tech writer. No inflammatory arthritis. Recommended to continue judicious use of gabapentin. Discussed about working on lifestyle modifications. Treatment Hx: meloxicam 7.5 mg once or twice daily, pt is no longer taking it Continue APAP prn Continue Lidoderm patch and diclofenac gel Assessment & Plan (08/15/2023 10:02 AM EST): Seen by ortho on 01/06/2018 and Received steroid injection in R knee. Referred to stained glass painter and received injection. Seen and evalauted by tech writer. No inflammatory arthritis. Recommended to continue judicious use of gabapentin. Discussed about working on lifestyle modifications. Treatment Hx: meloxicam 7.5 mg once or twice daily, pt is no longer taking it Continue APAP prn Add Lidoderm patch and diclofenac gel Assessment & Plan (03/03/2023 5:08 PM EDT): Seen by ortho on 01/06/2018 and Received steroid injection in R knee. Referred to stained glass painter and received injection. Seen and evalauted by tech writer. No inflammatory arthritis. Recommended to continue judicious use of gabapentin. Discussed about working on lifestyle modifications. Treatment Hx: meloxicam 7.5 mg once or twice daily, pt is no longer taking it Continue APAP prn Add Lidoderm patch and diclofenac gel Assessment & Plan (09/09/2022 11:20 AM EST): Seen by ortho on 01/06/2018 and Received steroid injection in R knee. Referred to stained glass painter and received injection. Seen and evalauted by tech writer. No inflammatory arthritis. Recommended to continue judicious [...] by Dr. Forrester [facility] 06/15/19. [facility] in [facility] - [...] was discontinued. - Last eye exam: 03/26/2025. [facility] eye care. Mild nonproliferative diabetic retinopathy of [...] BP at goal today - Co-managed with triple valve tester and pharmacist - Treatment Hx: HCTZ was [...] BP at goal today - Co-managed with triple valve tester and pharmacist - Treatment Hx: HCTZ was [...] in office was better. - Co-managed with triple valve tester and pharmacist - Treatment Hx: HCTZ was [...] in office was better. - Co-managed with triple valve tester and pharmacist - Treatment Hx: HCTZ was [...] BP at goal today - Co-managed with triple valve tester and pharmacist - Treatment Hx: HCTZ was [...] Encounters Date Type Department Care Team Description 05/19/2025 Refill [facility] DIABETES/NUTRITION [address] [place] [address] Patricia Asher MD 05/07/2025 Outside Procedure [facility] OPTOMETRY [address] [place] [address] Davidson, Yuliana, OD Presbyopia of both eyes (Primary Dx) 05/05/2025 11:00 AM EDT Office Visit [facility] OPTOMETRY [address] [place] [address] Davidson, Yuliana, OD Hyperopia of both eyes (Primary Dx) 05/05/2025 Travel 04/28/2025 9:30 AM EDT Office Visit [facility] MEDICINE [address] [place] [address] Patricia Asher MD Essential hypertension (Primary Dx); Dyslipidemia; Type 2 diabetes mellitus without complication, without long-term current use of insulin (CMS/HCC); Premature ventricular beats; Vascular insufficiency; Varicose veins of both lower extremities, unspecified whether complicated; Chronic left shoulder pain 04/28/2025 Travel 04/27/2025 Telephone [facility] MEDICINE [address] [place] [address] Patricia Asher MD CHART PREP 04/02/2025 Results Follow-Up [facility] MEDICINE [address] [place] [address] Armani Nunn ANP XR Shoulder 2+ Views Left, Creatine Kinase, Total, Basic Metabolic Panel 03/26/2025 10:30 AM EDT Office Visit [facility] OPTOMETRY [address] [place] [address] Davidson, Yuliana, OD 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 associated with type 2 diabetes mellitus (CMS/HCC) (Primary Dx); Nuclear sclerotic cataract of both eyes; Myelinated optic nerve fiber layer, left; Presbyopia of both eyes 03/26/2025 Travel 03/19/2025 9:30 AM EDT Office Visit [facility] MEDICINE [address] [place] [address] Armani Nunn ANP Acute pain of left shoulder (Primary Dx); Myalgia 03/19/2025 Travel 02/25/2025 Travel 02/25/2025 Refill [facility] MEDICINE [address] [place] [address] Zachary Garcia, RomuloD Type 2 diabetes mellitus without complication, without long-term current use of insulin (CMS/HCC) 02/20/2025 Refill [facility] WALK-IN CENTER [address] [place] [address] Loco Mojica MD Moderate persistent asthma without [...] complication, without long-term current use of insulin ([facility]) POCT GLYCOSYLATED HEMOGLOBIN (HGB A1C) Routine 04/28/2025 9:41 AM EDT Type 2 diabetes mellitus without complication, without long-term current use of insulin ([facility]) BASIC METABOLIC PANEL Routine 03/23/2025 10:46 AM EDT Myalgia CREATINE KINASE, TOTAL Routine 03/23/2025 10:46 AM EDT Myalgia XR SHOULDER 2+ VIEWS LEFT Routine 03/23/2025 10:21 AM EDT Acute pain of left shoulder ALBUMIN, RANDOM URINE W/CREATININE Routine 09/30/2024 9:33 AM EST Type 2 diabetes mellitus without complication, without long-term current use of insulin ([facility]) Essential hypertension LIPID PANEL WITH REFLEX TO DIRECT LDL Routine 09/30/2024 9:33 AM EST Type 2 diabetes mellitus without complication, without long-term current use of insulin ([facility]) LAB COLOGUARD COLON CANCER SCREEN Routine 09/18/2024 [...] Media Lot # [id number] Lot# Expiration Date [id number] Blood Capillary blood specimen / Unknown 04/28/2025 9:42 AM EDT Patricia Asher MD POINT OF CARE TEST ENTER/EDIT OR DERABLES Final Result * (ABNORMAL) POCT glycosylated hemoglobin (Hgb A1c) (04/28/2025 9:41 AM EDT) Hemoglobin A1C 6.6(A) 4.0 - 5.7 % QC Media Lot # [id number] Lot# Expiration Date [id number] Blood Capillary blood specimen / Unknown 04/28/2025 9:41 AM EDT Patricia Asher MD POINT OF CARE TEST ENTER/EDIT OR DERABLES Final Result * Creatine Kinase, Total (03/23/2025 10:46 AM EDT) Creatine Kinase Total 94 26 - 140 U/L [facility] Blood Venous blood specimen / Unknown 03/23/2025 10:46 AM EDT 03/23/2025 1:22 PM EDT Armani Nunn ANP LAB BLOOD ORDERABLES Final Resul t Performing Organization Address [facility] Co de Phone Number [facility] [address] [place] [phone] * (ABNORMAL) Basic Metabolic Panel (03/23/2025 10:46 AM EDT) Pathologist [facility] Sodium 143 135 - 145 mmol/L [facility] Potassium 4.1 3.3 - 5.1 mmol/L [facility] Chloride 108 96 - 108 mmol/L [facility] Carbon Dioxide 25 22 - 29 mmol/L [facility] Anion Gap 14 12 - 20 [facility] Urea Nitrogen (BUN) 13 9 - 16 mg/dL [facility] Creatinine, Serum 0.84 0.5 - 1.4 mg/dL [facility] Estimated Glomerular Filt Rate >60 [facility] Comment:Chronic Kidney Disea se: Estimated GFR < 60 mL/min/1.45o0Titezd Kidney Disease: Estimated GFR < 15 mL/min/1.73m2 Glucose 166(H) 60 - 115 mg/dL [facility] Calcium 9.1 8.4 - 10.2 mg/dL [facility] Blood Venous blood specimen / Unknown 03/23/2025 10:46 AM EDT 03/23/2025 1:22 PM EDT Armani Nunn ANP LAB BLOOD ORDERABLES Final Resul t Performing Organization Address [facility]/ZIP Co de Phone Number [facility] [address] [place] [phone] * XR Shoulder 2+ Views Left (03/23/2025 10:21 AM EDT) Anatomical Region Laterality Modality Upper Extremities, Shoulder Left Radi ographic Imaging 03/23/2025 10:2 1 AM EDT Narrative 03/23/2025 11:20 AM EDT [address] [address] XRay Report Signed Patient: Miryam Moura I MR#: [id number] : 1960 Acct:[id number] Age/Sex: 65 / F ADM Date: 03/23/25 Loc: [facility] Attending Dr: Armani Nunn NP Ordering Physician: ARMANI NUNN NP Date of Service: 03/23/25 Procedure(s): XR shoulder LT min 2V Accession Number(s): [id number] cc: ARMANI NUNN NP EXAMINATION: XR SHOULDER [...] 03/23/25 1117 DD/ 1021 TD/TT: 03/23/25 1025 Market Stall Vendor: Procedure Note Donotuseinterpreter, Image - 03/23/[address] [address] XRay Report Signed Patient: Miryam Moura IMR#: [id number] : 1960cct:[id number] Age/Sex: 65 / FADM Date: 03/23/25 Loc: ROBYNX Attending Dr: Armani Nunn MARKET PRESIDENT Ordering Physician: ARMANI NUNN NP Date of Service: 03/23/25 Procedure(s): XR shoulder LT min 2V Accession Number(s): [id number] cc: ARMANI NUNN MARKET PRESIDENT EXAMINATION: XR SHOULDER 2 OR MORE VIEWS [...] 03/23/25 1117 DD/ 1021 TD/TT: 03/23/25 1025 Market Stall Vendor: Armani Nunn ANP IMG XR PROCEDURES Final Result * Lipid Panel with Reflex to Direct LDL (09/30/2024 9:33 AM EST) Triglycerides 93 <150 mg/dL [facility] Comment:Desirable Triglyceri de: less than 150 mg/dLBorderline High Triglyceride 150-199 mg/dLHigh Triglyceride: 200-499 mg/dLVery High Triglyceride: greater than or equal to 5OO mg/dL Cholesterol 114 <200 mg/dL [facility] Comment:Desirable Cholestero l: less than 200 mg/dLBorderline High Cholesterol: 200-239 mg/dLHigh Cholesterol: greater than 239 mg/dL LDL Cholesterol Calculated 46 <100 mg/dL [facility] Comment:Desirable LDL: less than 100 mg/dLNear Optimal/Above Optimal LDL: 110- 129 mg/dLBorderline High LDL: 130-159 mg/dLHigh LDL: 160-189 mg/dLVery High LDL: greater than or equal to 190 mg/dL HDL Cholesterol 50 >40 mg/dL [facility] Comment:Desirable HDL: great er than 40 mg/dL Note: This HDL assay may give artificially low results in patients with liver disease. Blood 09/30/2024 9:33 AM EST 09/30/2024 10:51 AM EST Patricia Asher MD LAB BLOOD ORDERABLES Final Resul t Performing Organization Address [facility] de Phone Number [facility] [address] [place] [phone] * Albumin, Random Urine W/Creatinine (09/30/2024 9:33 AM EST) Creatinine, Urine 156.56 mg/dL [facility] Microalbumin Urine 28.0 mg/L [facility] Microalbum Creatinine Ratio Ur 17.8 <30 ug/mg cr [facility] Comment:Albumin/Creatinine R atio Reference Ranges: Normal: < 30 ug/mg creatinine Microalbuminuria: 30 - 300 ug/mg creatinineClinical Albuminuria: > 300 ug/mg creatinine Urine 09/30/2024 9:33 AM EST 09/30/2024 10:56 AM EST Patricia Asher MD LAB URINE ORDERABLES Final Resul t Performing Organization Address [facility] de Phone Number [facility] [address] [place] [phone] * (ABNORMAL) Cologuard?? colon cancer screening (09/18/2024 8:47 AM EST) Cologuard Result Positive( A) Negative 09/24/2024 9:46 AM EST [facility] (CLIA #:[id number]) Comment: POSITIVE TEST RESULT. A positive Cologuard [...] (Michelle Peralta al, N Engl J Med 2014;370(14):3383-4872.) Cologuard may produce a false negative or false positive result (no colorectal cancer or precancerous polyp present at colonoscopy follow up). A negative Cologuard test result does not guarantee the absence of CRC or advanced adenoma (pre-cancer). The current Cologuard screening interval is every 3 years. ([place] [employer] and U.S. Multi-Society Task Force). Cologuard performance data in a 10,000 patient pivotal study using colonoscopy as the reference method can be accessed at the following location: www.playnik/results. Additional description of the Cologuard test process, warnings and precautions can be found at www.Stypird.com. Stool specimen (specimen) Rectal contents / Unknown 09/18/2024 8:47 AM EST 09/19/2024 7:23 AM EST Patricia Asher MD LAB MOLECULAR DIAGNOSTICS ORDERA BLES Final Result [facility] (CLIA #:[id number]) [place] [address], * HPV mRNA E6/E7 w/Reflex to HPV Genotypes 16, 18/45 (07/01/2024 12:00 AM EST) us Historical Provider MD LAB CYTOLOGY ORDERABLES F inal Result [facility] [address] [place] [phone] [phone] * Pap Smear (07/01/2024 12:00 AM EST) Swab Cervix uteri structure / Unknown 07/01/2024 07/02/2024 8:45 AM EST Narrative [facility] - 07/06/2024 8:28 AM EST ----- ------- Name: Miryam Moura I Age/Sex: 64/F : 1960 Unit#: [id number] Attend Dr: Re07/01/24 Status: PRE REF Location: [facility] Disch: ----- ------- SPEC : [id number] RECD: 07/02/24 STATUS: IZZY REBurak NUM: [id number] JATIN: 07/01/24-[address]: Patricia Asher MD ENTERED: 07/02/24 SP TYPE: Pap Smr OT DR: ORDERED: Pap Smear Interpretation Satisfactory for evaluation. Negative for intraepithelial lesion or malignancy. HPV High Risk: Negative HPV Genotyping 16: Negative HPV Genotyping 18: Negative Clinical Information LMP: Postmenopausal Previous PAP test: 2019, Abnormal Material Received ThinPrep-Cervical ----- ------- Signed (signature on file) GREGORIO Crisostomo (ASCP) 07/06/24 0828 ----- ------- END OF REPORT Patricia Asher MD LAB CYTOLOGY ORDERABLES Final Re sult [facility] [address] [place] [address] [phone] * BI Mammogram Screening Tomosynthesis Bilateral (11/21/2023 12:05 PM EDT) Anatomical Region Laterality Modality Breast Bilateral Mammography 11/21/2023 12:0 5 PM EDT Narrative 12/07/2023 10:20 PM EDT [facility] [address] [place] [address] [place] [address] Mammography Report Signed Patient: Miryam Moura I MR#: [id number] : 1960 Acct:[id number] Age/Sex: 63 / F ADM Date: 11/21/23 Loc: ROSA Attending Dr: Patricia Asher MD Ordering Physician: Patricia Asher MD Results: 1Negative Date of Service: 11/21/23 Follow Up: 1 Year From Orig inal Mammogram Procedure(s): MM tomosynthesis screening BI Accession Number(s): [id number] cc: Patricia Asher MD EXAMINATION: MM SCREENING [...] signed by Tori Oh MD in OV> 12/07/237 DD/ 1205 TD/TT: Market Stall Vendor: Procedure Note Donotuseinterpreter, Image - 12/07/2023 [facility] [address] [place] [address] Mammography Report Signed Patient: Miryam Moura IMR#: [id number] : 2Acct:[id number] Age/Sex: 63 / FADM Date: 11/21/23 Loc: ROSA Attending Dr: Patricia Asher MD Ordering Physician: Patricia Asher MDResults: 1Negative Date of Service: 11/21/23Follow Up: 1 Year From Orig inal Mammogram Procedure(s): MM tomosynthesis screening BI Accession Number(s): [id number] cc: Patricia Asher MD EXAMINATION: MM SCREENING [...] by Tori Oh MD in OV> 12/07/23 4924 DD/ 1205 TD/TT: Market Stall Vendor: Patricia Asher MD IMG BI PROCEDURES Final Result * Colonoscopy (02/17/2015) Colonoscopy Normal Normal 02/17/2015 Whitley Kerr [facility] Edited Result - Final from Last 3 Months or Most Recently Relevant to Health Maintenance Insurance [facility] C3 Care Teams Lock Stitch Channeler Relationship Specialty Start Date End Date Patricia Asher MD [address] [place] [address] PCP - General Family Medicine 05/05/13 Zachary Garcia, RomuloD [address] [place] [address] Pharmacist Internal Medicine 12/24/22
--- OUTSIDE RECORDS SUMMARY | 2025-05-19 14:13 | XMS_ITS | Encounter Summary ---
Author Organization [email or web address] Address [address] [facility] [address] [place] [address] Care Team Providers Care Heavy Forger Helper Name Role Phone Patricia Asher MD Primary Care Provider [phone] Zachary Garcia PharmD Unavailable [phone] Encounter Details Date Type Department Care Team (Latest Contact Info) Description 09/08/2018 Abstract [facility] CONVERSIONS Dental, Provider, DDS Social History [...] on filedocumented in this encounter Care Teams Heavy Forger Helper Relationship Specialty Start Date End Date Patricia Asher MD [address] [place] [address] PCP - General Family Medicine 05/05/13 Zachary Garcia, PharmD [address] [place], [place] [phone] Pharmacist Internal Medicine 12/24/22 documented as of this encounter
--- NOTE | 2025-05-24 11:45 | HO.ANESPROP2 ---
Documented by User: Leela Yu NP 05/24/25 11:46 HPI - Anesthesia Eval Consult details Narrative: 65yo F for Upper Endoscopy and Colonoscopy Anesthesia Pre-Procedure Meds Is the patient on any of the following meds?: GLP1/DPP4 PMFSH Active Problems Active Problems: All Active Problems Left lateral epicondylitis (Acute) Carpal tunnel syndrome of left wrist (Acute) Cubital tunnel syndrome on left (Acute) Past Medical History Medical History Asthma Diabetes mellitus High blood pressure High cholesterol Surgical History Surgical History H/O colonoscopy Social History Social History Patient Tobacco Use Status: Never used Tobacco Have you been hit, kicked, punched, or otherwise hurt by someone within the past year? If so, by whom?: No Are you DNR?: No Advance Directives: No Advance Directives Information Provided: Yes Current occupational status: disabled Current occupation: rt hand Meds Allergies Allergy/AdvReac Type Severity Reaction Status Date / Time No Known Allergies (No Known Allergy Unverified 07/25/22 08:46 Allergies*) Home Medications ?Medication ?Instructions ?Recorded ?Confirmed ?Last Taken ?Type atorvastatin 40 mg tablet 40 mg PO BEDTIME 03/09/22 05/25/25 05/23/25 History enalapril maleate 20 mg tablet 20 mg PO BID 03/09/22 05/25/25 05/23/25 History gabapentin 100 mg capsule 100 mg PO BID 03/09/22 05/25/25 05/23/25 History meloxicam 7.5 mg tablet 7.5 mg PO BID PRN Pain (Scale 03/09/22 05/25/25 04/24/25 History Score 4-6) metformin 1,000 mg tablet 1,000 mg PO BID 03/09/22 05/25/25 05/23/25 History repaglinide 1 mg tablet 1 mg PO TID 03/09/22 05/25/25 05/23/25 History aspirin 81 mg tablet,delayed 81 mg PO DAILY 05/17/25 05/25/25 04/24/25 History release cholecalciferol (vitamin D3) 25 25 mcg PO DAILY 05/17/25 05/25/25 05/23/25 History mcg (1,000 unit) tablet dulaglutide 3 mg/0.5 mL 0.5 mg subcut QWEEK 05/17/25 05/25/25 05/04/25 History subcutaneous pen injector (Trulicity) metoprolol succinate 25 mg 25 mg PO DAILY 05/17/25 05/25/25 05/23/25 History tablet,extended release 24 hr montelukast 10 mg tablet 10 mg PO QPM 05/17/25 05/25/25 05/23/25 History Assessment and Plan Assessment Anesthesia Assessment: Chart Reviewed Documented by User: Zahira Mejia MD 05/25/25 09:30 [facility] Past Medical History Medical History Asthma Diabetes mellitus High blood pressure High cholesterol Family History Family history of problems with anesthesia: No Surgical History Surgical History H/O colonoscopy History of Problems with Anesthesia: No Social History Social History Patient Tobacco Use Status: Never used Tobacco Have you been hit, kicked, punched, or otherwise hurt by someone within the past year? If so, by whom?: No Are you DNR?: No Advance Directives: No Advance Directives Information Provided: Yes Current occupational status: disabled Current occupation: rt hand Meds Allergies Allergy/AdvReac Type Severity Reaction Status Date / Time No Known Allergies (No Known Allergy Unverified 07/25/22 08:46 Allergies*) Home Medications ?Medication ?Instructions ?Recorded ?Confirmed ?Last Taken ?Type atorvastatin 40 mg tablet 40 mg PO BEDTIME 03/09/22 05/25/2525 History enalapril maleate 20 mg tablet 20 mg PO BID 03/09/22 05/25/25 05/23/25 History gabapentin 100 mg capsule 100 mg PO BID 03/09/22 05/25/25 05/23/25 History meloxicam 7.5 mg tablet 7.5 mg PO BID PRN Pain (Scale 03/09/22 05/25/25 04/24/25 History Score 4-6) metformin 1,000 mg tablet 1,000 mg PO BID 03/09/22 05/25/25 05/23/25 History repaglinide 1 mg tablet 1 mg PO TID 03/09/22 05/25/25 05/23/25 History aspirin 81 mg tablet,delayed 81 mg PO DAILY 05/17/25 05/25/25 04/24/25 History release cholecalciferol (vitamin D3) 25 25 mcg PO DAILY 05/17/25 05/25/25 05/23/25 History mcg (1,000 unit) tablet dulaglutide 3 mg/0.5 mL 0.5 mg subcut QWEEK 05/17/25 05/25/25 05/04/25 History subcutaneous pen injector (Trulicity) metoprolol succinate 25 mg 25 mg PO DAILY 05/17/25 05/25/25 05/23/25 History tablet,extended release 24 hr montelukast 10 mg tablet 10 mg PO QPM 05/17/25 05/25/25 05/23/25 History Exam Airway Mallampati Class: II TM Dist: >3cm Neck ROM: Full Heart: rrr Lungs: cta Assessment and Plan Assessment Anesthesia Assessment: Anesthesia Plan Discussed Final Anesthetic Review Family History of Problems with Anesthesia: No History of Problems with Anesthesia: No NPO: Yes ASA Class: III Final Preanesthetic Review: No Changes in Pt Med Stat, Meds/Allgs Chart Reviewed, Consent Obtained/Reviewed and Anes Risks/Benef Reviewed Patient Risk: Intermediate Procedure Risk: Low Anesthetic Plan Anesthetic Plan: MAC: Disposition: Standard PACU
[2025-05-25 05:31] VITALS: BMI 30.4
[2025-05-25 08:56] VITALS: BP 183/61; PULSE 71; RESP 20; TEMP 36.1; O2SAT 96; BMI 32.2
[2025-05-25 09:08] LABS: Glucose, Whole Blood 106 mg/dL (60-115)
[2025-05-25] MEDS: Lactated Ringers 1,000 ML 100 ML IVCONT (09:16)
--- NOTE | 2025-05-25 10:24 | MHC.SHP ---
Pre-Procedural Eval Section A - 24 Hr Update-Section A only Date of Service: 05/25/25 The patient is an INPATIENT: No The patient has been examined within 24 hours of the surgical procedure. The History & Physical has been completed within 30 days and I have reviewed it.: Yes Section B - Complete if H&P > 30 days Chief Complaint: screening Allergies: Allergies Allergy/AdvReac Type Severity Reaction Status Date / Time No Known Allergies (No Known Allergy Unverified 07/25/22 08:46 Allergies*) Plan Diagnosis/Plan: Unchanged I have reviewed the history and physical and performed a pertinent physical examination on my patient. No changes have occurred unless specified. Time Spent With Patient Time: Total time managing care of this patient today ____ minutes.
--- NOTE | 2025-05-25 11:04 | P.OPN-COLO_ITS ---
Colonoscopy Operative Note Operative Note Date of Service: 05/25/25 Narrative: Procedure: Upper endoscopy and colonoscopy Indication: Abd pain, chronic diarrhea Endoscopist: Ana Hernandez MD Anesthesia Provider: Primo Valadez CRNA Anesthesia type: MAC Instrument: [id number] and [id number] EGD Procedure:?? The procedure, indications, preparation and potential complications were reviewed with the patient, who indicated understanding and gave written informed consent to proceed. The endoscope was introduced through the mouth, and advanced to the 2nd part of the duodenum. The mucosa was carefully examined on slow withdrawal of the endoscope. The patient tolerated the procedure well. There were no immediate complications.? EGD Findings:? * Esophagus:? Normal esophageal mucosa was noted. The Z-line was at 33 cm displaced by a hiatal hernia with the diaphragmatic pinch at 36 cm. * Stomach:? Normal gastric mucosa. Retroflexion was performed in the cardia that showed Hill grade II hiatal hernia. Random cold forceps biopsies were taken from the stomach. * Duodenum:? Normal duodenal mucosa. Cold forceps biopsies were taken from the duodenal bulb and 2nd portion of the duodenum to rule out celiac sprue. Colonoscopy Procedure:? The patient was then turned for the colonoscopy. A digital rectal exam was performed which was abnormal for external hemorrhoids.? A distal attachment cap was affixed to the tip of the scope and the colonoscope was then inserted through the anus and advanced through the colon and advanced to the cecum at 75 cm and terminal ileum.? Appendiceal orifice and ileocecal valve were identified. Mucosa was carefully examined under high definition white light as the instrument was slowly withdrawn in a retrograde panoramic fashion. Retroflexion was performed in rectum. The procedure was not difficult. The quality of the prep was BBPS: 2+3+3 = adequate Withdrawal time 7 minutes Limitations: No limitations Findings: Mucosa: Normal colon and terminal ileum mucosa. Cold forceps biopsies were taken of the right and left side of the colon to rule out microscopic colitis. Protruding lesions: * Medium internal hemorrhoids without stigmata of recent bleeding. Excavated lesions: * Mild diverticulosis of sigmoid colon. Impression: 1. Normal esophagus 2. Normal stomach (biopsy) 3. Normal duodenum (biopsy) 4. Normal colon and terminal ileum mucosa (biopsy) 5. Diverticulosis 6. Internal and external hemorrhoids Recommendations:?? * Follow-up path results * H Pylori treatment if biopsies + * Repeat colonoscopy for CRC screening in 10 years.
[2025-05-25 11:06] VITALS: BP 110/62; PULSE 73; RESP 12; TEMP 36.2; O2SAT 98
[2025-05-25 11:15] VITALS: BP 124/70; PULSE 66; RESP 12; O2SAT 98
== END 2025-05-25 12:09 | disposition home or self-care (01) ==
PROVIDERS: PCP Family Medicine; Visit Provider Internal Medicine
PROC: (CPT 45380; principal; 2025-05-25 10:30)
DX: R19.5 Other fecal abnormalities (principal); K52.9 Noninfective gastroenteritis and colitis, unspecified; K57.30 Diverticulosis of large intestine without perforation or abscess without bleeding; K64.8 Other hemorrhoids; K64.4 Residual hemorrhoidal skin tags; R10.13 Epigastric pain; R14.0 Abdominal distension (gaseous); K29.70 Gastritis, unspecified, without bleeding; K44.9 Diaphragmatic hernia without obstruction or gangrene; K21.9 Gastro-esophageal reflux disease without esophagitis; I10 Essential (primary) hypertension; E78.00 Pure hypercholesterolemia, unspecified; E11.9 Type 2 diabetes mellitus without complications; J45.909 Unspecified asthma, uncomplicated; Z79.82 Long term (current) use of aspirin; Z79.85 Long-term (current) use of injectable non-insulin antidiabetic drugs; Z79.84 Long term (current) use of oral hypoglycemic drugs; Z79.899 Other long term (current) drug therapy; Z98.890 Other specified postprocedural states
CPT/HCPCS: 45380; 43239; 82947; 88305; 88313; 88342; J2003; J2704

== ENCOUNTER → 2025-05-25 08:11 | Outpatient (BNV) | payer MEDICAID, SELFPAY | PROVIDERS: PCP Family Medicine; Visit Provider Internal Medicine | DX: K52.9 Noninfective gastroenteritis and colitis, unspecified (principal); K64.8 Other hemorrhoids; K57.30 Diverticulosis of large intestine without perforation or abscess without bleeding; R10.9 Unspecified abdominal pain; K44.9 Diaphragmatic hernia without obstruction or gangrene | CPT/HCPCS: 43239; 45380 ==

== ENCOUNTER 2025-08-03 10:20 | Outpatient (AMB) | payer MEDICAID, SELFPAY ==
--- NOTE | 2025-08-03 10:37 | A.OFFVIS_ITS ---
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 Patient reports ongoing pain for about 4 - 5 months. She states that her pain is on the lateral aspect of the shoulder and it radiates up to her neck all the time. Patient notices that her pain is worse when she is lifting her arm and reaching for her back. She has tried Tylenol with mild relief and her pain comes back. 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 Emergency Doctor Services: Emergency Doctor Offered & Declined Accompanied by: Daughter Allergies No Known Allergies (No Known Allergies*) Allergy (Verified 08/03/25 10:40) HPI Comments Details: The patient is a 65 year old female presenting with shoulder pain. She reports significant pain in her shoulder that radiates up to her neck. The pain is exacerbated by fatigue and she must sleep in a specific position to remain comfortable. Patient reports ongoing pain for the past 4-5 months. She denies any injury or trauma. Pain is worsened with lifting her arm above shoulder height and reaching behind her back. She has tried and failed Tylenol with only mild relief. She denies any numbness or tingling in her fingers. She has a past medical history of diabetes. She denies any prior history of neck issues. [facility] Medical History Asthma Diabetes mellitus High blood pressure High cholesterol Surgical History H/O colonoscopy Social History Alcohol intake: never Patient Tobacco Use Status: Never used Tobacco Current occupational status: disabled Current occupation: rt hand Review of Systems Narrative Review of Systems - Musculoskeletal: Reports significant shoulder pain that radiates to her neck. - Neurological: Denies numbness or tingling in the fingers. - Constitutional: Reports fatigue which brings on the pain. Physical Exam Exam Exam: Procedure - A cortisone injection into the shoulder was discussed as a treatment option. - The risks, specifically the potential for elevated blood glucose levels due to her diabetes, were explained. - The patient was agreeable to proceeding with the injection. Physical Exam - Musculoskeletal: On shoulder examination, active forward elevation is limited by pain. - Internal rotation is limited by pain. - Cross-body adduction elicits some pain. - Resisted abduction with internal rotation (Ama's test) was attempted but not completed due to pain. Const General: cooperative, healthy appearing and no acute distress Resp Effort & Inspection: normal respiratory effort and able to speak in complete sentences Extrem Other: Left shoulder: No ecchymosis, erythema, or edema. Full shoulder ROM in all planes with pain. Negative cross-body reach. 3/5 strength with empty can. Negative drop arm. NVI. Psych Appearance: grossly normal Mental Status: mental status grossly normal Attitude: cooperative Office Procedures AMB Joint Injection/Aspiration Joint Injection/Aspiration Primary Site: Left Shoulder Prep: site was prepped using aseptic technique, ethochloride spray was applied and injection warnings given Injected: 40 mg of, Decadron, with 3 mL of, 1% plain Lidocaine, 0.25% Bupivacaine and in the subcromial space Approach Used: posterolateral Procedure: The patient tolerated the procedure well, but had some pain with the injection and there was some relief with the local anesthesia Coding 73158 - Large joint Procedure code (CPT) selection complete Assessment & Plan Assessment & Plan (1) Cervical radiculopathy: Code(s): M54.12 - Radiculopathy, cervical region Category: Medical (2) Painful arc syndrome of left shoulder: Code(s): M75.102 - Unspecified rotator cuff tear or rupture of left shoulder, not specified as traumatic Category: Medical Plan The patient presents with shoulder pain radiating to the neck. The differential diagnosis includes painful arc syndrome and cervical radiculopathy. The plan includes a cortisone injection in the shoulder to address inflammation and a referral for physical therapy to address both the shoulder and neck. If the pain continues to originate from the neck and radiate down the left upper extremity, a referral to a soap press feeder will be considered. The patient was offered a cortisone injection in left shoulder. The patient was explained the risks, benefits, and alternatives to receiving this injection. After receiving consent for the injection, the patient had the procedure done while in the office today. The patient tolerated the procedure well with no complications. The risks, benefits, and alternatives to a corticosteroid injection were discussed with the patient, including the potential benefits of decreased inflammation and pain, improved function, and diagnostic value. Risks were reviewed, including post-injection flare, skin or fat atrophy, transient facial flushing, temporary elevation in blood glucose, bruising, and rare but serious complications such as infection, tendon weakening or rupture, and cartilage damage with repeated injections. Procedure-related discomfort and possible vasovagal symptoms were also explained. Alternatives were reviewed, including NSAIDs, physical therapy, activity modification, bracing, ice/heat, weight management, hyaluronic acid injections when appropriate, PRP or other orthobiologics, oral steroids, surgery depending on pathology, and observation. The patient verbalized understanding and elected to proceed. After receiving consent for the injection, the patient had the procedure done while in the office today. The patient tolerated the procedure well with no complications. The patient has a history of diabetes. She was counseled that the cortisone injection can cause a temporary increase in her blood glucose levels. She was instructed to monitor her blood sugar levels for the next few days and to contact her primary care doctor if they become significantly elevated. Patient will follow up after a course of physical therapy, sooner if needed. X-rays of the left shoulder which were obtained on 03/23/2025 are available for my review and reveal mild degenerative changes of the AC joint. Coding Level of Care Code New Pt Level 4 (48500) Complex visit Add On G2211 Diagnoses Cervical radiculopathy M54.12 Painful arc syndrome of left shoulder M75.102 CPT Codes Coding - 64027 Large joint: 90508 - Large joint ([id number])
== END 2025-08-03 11:25 | disposition home or self-care (01) ==
LOC: HO.HOS 10:21
PROVIDERS: PCP Nurse Practitioner Primary Care; Visit Provider Physician Assistant
DX: M54.12 Radiculopathy, cervical region (principal); M75.102 Unspecified rotator cuff tear or rupture of left shoulder, not specified as traumatic
CPT/HCPCS: 20610; 99204

== ENCOUNTER → 2025-08-03 10:20 | Outpatient (BNVA) | payer MEDICAID, SELFPAY | PROVIDERS: PCP Nurse Practitioner Primary Care; Visit Provider Physician Assistant | DX: M75.102 Unspecified rotator cuff tear or rupture of left shoulder, not specified as traumatic (principal); M54.12 Radiculopathy, cervical region | CPT/HCPCS: 20610; 99212; J0665; J1100; J2003 ==